=== PATIENT | female | born 1960 | race Hispanic/Latino ===

== ENCOUNTER → 2021-12-31 10:17 | Outpatient (CLI) | payer OTHER, SELFPAY ==
[2021-12-31 13:29] LABS: COVID19 -Nasal RAPID Negative (Negative)
== END ==
PROVIDERS: Family Provider Family Medicine; PCP Family Medicine; Visit Provider Family Medicine Sleep Medicine
DX: Z20.822 Contact with and (suspected) exposure to COVID-19 (principal)
CPT/HCPCS: 87635; C9803

== ENCOUNTER 2022-01-03 11:10 | Observation (INO) | payer OTHER, SELFPAY ==
[2021-12-27 08:08] VITALS: BMI 43.0
[2022-01-02] VITALS (12 sets, daily range): BP systolic 120–177; BP diastolic 52–87; PULSE 72–97; RESP 12–18; TEMP 35.8–36.7; O2SAT 94–97; BMI 43.0
[2022-01-02] MEDS: LACTATED RINGERS 1,000 ML 42 ML IV ×2 (07:12→09:40)
--- NOTE | 2022-01-02 07:40 | PM.PREOP ---
Pre-operative Note COVID-19 COVID-19 status: Negative Result date/Date tested (Pos, Neg/Pending): 12/31/21 Interval Note History & Physical reviewed/Exam performed by Physician: Yes Changes to H&P: No
--- NOTE | 2022-01-02 07:45 | DI.RAD.S_ITS ---
PROCEDURE: XR KNEE RT 1TO2V INDICATIONS: post op total knee TECHNIQUE: 2 view(s) of the knee acquired. COMPARISON: None. FINDINGS: Bones: Patient is status post knee joint arthroplasty. Hardware components are in expected positions. Visualized bony structures are intact. Soft tissues: Overlying postoperative changes are noted. IMPRESSION: Expected postop change for right knee arthroplasty. Dictated by: Karen Hayes MD, PhD on 01/02/2022 at 11:22 Approved by: Karen Hayes MD, PhD on 01/02/2022 at 11:27
[2022-01-02] MEDS: ACETAMINOPHEN 325 MG TABLET 975 MG PO (07:47)
[2022-01-02] MEDS: PREGABALIN 75 MG CAPSULE PO (07:48)
[2022-01-02] MEDS: CELECOXIB 200 MG CAPSULE PO (07:48)
[2022-01-02] MEDS: CEFAZOLIN 2 GM/20 ML SYRINGE IV (08:30)
[2022-01-02] MEDS: TRANEXAMIC ACID 1,000 MG VIAL 2000 MG INJ ×2 (08:40→09:47)
--- NOTE | 2022-01-02 08:55 | SUR.OPER ---
Supine on padded OR bed. Pillow under head, arms secured on padded armboards <90 degree abduction. Safety belt across torso. Non-operative leg secured with tape over blanket over lower leg. Operative leg secured in De[employer]o positioner. Foam padded brace at thigh of operative leg.
[2022-01-02] MEDS: BUPIVACAINE LIPOSOME 266 MG/20 ML VIAL INJ (09:11)
[2022-01-02] MEDS: MORPHINE 4 MG/ML INJ INJ (09:11)
[2022-01-02] MEDS: BUPIVACAINE 0.5% (PF) 30 ML, EPINEPHrine 0.15 MG INJ (09:12)
--- NOTE | 2022-01-02 10:20 | PM.OP.1 ---
Operative Date/Time/Diagnoses Date of procedure: 01/02/22 Time of procedure: 10:00 Pre-op diagnosis: Right knee osteoarthritis Post-op diagnosis: same Procedure & Clinicians Procedure: Right total knee replacement Same procedure as scheduled: Yes Indications: The patient has had progressively worsening right knee pain with radiographic changes consistent with arthritis. Non-operative management has failed and the patient has requested total knee replacement. The risks, benefits and alternatives to surgery were discussed with the patient prior to proceeding. Risks discussed included, but were not limited to, failure to relieve pain, stiffness, infection, nerve damage, deep venous thrombosis, pulmonary embolism, stroke, coma, heart attack, permanent paralysis and , as well as the potential need for eventual revision of the prosthetic. Surgeon: Kahlil Alonso Composition Stone Applicator: Aaron Marsh Click Yes if Unassisted: No Anesthesia Type: General, Spinal and Local Operative Notes Findings: Severe medial and moderate patellofemoral osteoarthritis Closure Type: primary Specimen(s): none sent Prosthetic devices, grafts, tissues, transplants, or devices: Implants used in this procedure were manufactured by the [employer] and [employer] and included the BCS II Journey total knee replacement with a size 5 right Oxinium femoral component, a size 4 right non porous tibial base plate, a 9 mm tibial insert and a 32 mm oval Becky II patella. Applied: implant(s) Estimated Blood Loss (mL): 50 Blood products transfused: none Tourniquet time (min): 52 Procedure in detail: The patient was seen in the pre-operative area, where the patient identified the right knee as the operative site and this was marked with my initials. The patient received pre-operative antibiotics, and was taken to the operating room and placed on the operative table in the supine position. After satisfactory anesthesia, a time study technologist out was performed. The right leg was encircled with a tourniquet about the proximal thigh, and the leg was prepared from the toes to the tourniquet with ChloroPrep in the usual fashion and draped through sterile drapes. The leg was elevated and exsanguinated with Eschmark bandage and the tourniquet inflated to 250 mmHg pressure. The knee was approached through an approximately 18 cm incision centered over the patella and carried into the knee through a medial parapatellar arthrotomy. The anterior osteophytes and soft tissues were removed. The rotational landmarks of Caswell's line and the transepicondylar axis were marked on the femur with electrocautery, and intramedullary guide holes for the femur and tibia were created. The distal femoral cut was made in 6 degrees of valgus using the intramedullary guide at the primary cut setting. The proximal tibial cut was then made using the intramedullary guide, taking 9 mm of bone off the less involved side. The extension gap was checked and the rotation of the femoral component confirmed with the gap balancing system. The anterior, posterior and chamfer cuts were then made. The posterior osteophytes and soft tissues were then removed. The posterior capsule was injected with part of a mixture of 60 ml 0.25% Marcaine mixed with 20 ml Exparel and 4 mg of morphine for post-operative pain control. The remainder of this mixture was injected into the capsule and subcutaneous tissues during cement curing. The tibia was prepared with the rotation set by an extra medullary guide. Trial tibial and femoral components were then placed and the intercondylar notch cut through the femoral trial. Range of motion was 0-135 degrees with good stability throughout the range. The patella was then cut to accommodate the patellar prosthetic. There was no need for a lateral release. The trials were then removed, and the femoral hole plugged with a bone plug. The bone was prepared with pulsatile lavage, and dried with a sponge. Cement was applied and the final prosthetics placed. Excess cement was removed during and after cement curing. After confirming there was no extruded cement posteriorly, the final tibial insert was placed. The knee was copiously irrigated and the tourniquet deflated. Hemostasis was obtained. The capsule was closed with interrupted # 2 polyester suture. The subcutaneous layer was closed with 3-0 Vicryl, and the skin with a running 3-0 V-Lock suture and Dermabond. An Aquacel Ag dressing was applied and the patient was taken to recovery having tolerated the procedure well. Complications: none Post-operative Condition: stable Disposition: PACU Plan for aftercare: The patient will be maintained on a standard total knee replacement protocol with weight bearing as tolerated. The patient will receive aspirin and sequential compression devices for DVT prophylaxis. The patient will be discharged home when safe for the home environment.
[2022-01-02] MEDS: HYDROMORPHONE 2 MG INJ IV ×4 (10:33→10:56)
[2022-01-02] MEDS: fentaNYL 100 MCG/2 ML INJ IV ×2 (10:37→10:49)
[2022-01-02] MEDS: OXYCODONE/ACETAMINOPHEN 5/325 TABLET 1 TAB PO (11:12)
[2022-01-02] MEDS: GABAPENTIN 300 MG CAPSULE PO (13:01)
[2022-01-02] MEDS: hydroCHLOROthiazide 25 MG TABLET PO (13:01)
[2022-01-02] MEDS: METFORMIN HCL 500 MG TABLET 1000 MG PO (13:01)
[2022-01-02] MEDS: LACTATED RINGERS 1,000 ML 100 ML IV ×2 (13:02→23:34)
[2022-01-02] MEDS: INSULIN LISPRO 100 UNIT/ML 3ML VIAL SUBCUT ×2 (13:02→17:37)
[2022-01-02] MEDS: ONDANSETRON 4 MG/2 ML INJ IV ×2 (13:33→18:14)
[2022-01-02] MEDS: ACETAMINOPHEN 325 MG TABLET 650 MG PO ×2 (14:15→20:23)
[2022-01-02] MEDS: OXYCODONE IR 5 MG TABLET PO ×2 (15:24→20:23)
[2022-01-02] MEDS: hydrOXYzine pamoate 25 MG CAPSULE PO (15:25)
--- NOTE | 2022-01-02 16:20 | PT.IIE ---
Current Diagnoses Unilateral primary osteoarthritis, right knee (01/02/22) Surgery Performed Operation Date: 01/02/22 07:45 Actual Procedures p Total Knee Arthroplasty(Right) - Kahlil Alonso MD Medical History (Last Updated 01/02/22 @ 07:11 by Silvana Russell RN) Anxiety Asthma Chronic low back pain COVID-19 virus infection (06/2020) Depression Diabetes (2020) Fibromyalgia GERD (gastroesophageal reflux disease) Graves' disease Headache, migraine HLD (hyperlipidemia) HTN (hypertension) Hypothyroidism Insomnia NAOMI (obstructive sleep apnea) Pain management contract agreement RLS (restless legs syndrome) Sinusitis Physical Therapy Inpatient Evaluation/Re-Eval M1 PT/OT-IP Prior Functional Status Start: 01/02/22 17:11 Freq: NEEDED Status: Active Protocol: Document 01/02/22 16:20 AB (Rec: 01/02/22 17:24 AB [id number]) Medical Review Prior Functional Status Medical History Reviewed Yes Communication able to make needs known Mobility and Gait pt stated that she is iindependent with all mobilities and ambulation without AD indoors but uses a SPC for outdoor/long distance mobility Social History Household Members none Living Arrangements House Number of Floors (Floors) One Floor Number of Stairs To Enter/Railing? no steps to enter Home Environment High Toilet,Tub/Shower Home Equipment Front Wheel Walker,Straight Cane,Tub Transfer Bench,Hand Held Shower,Grab Bars In Shower Additional Social History Comment pt's son and [id number] will stay with pt for the first week and then her daughter will stay with her to assist pt has access to a hospital bed with rails M2 PT-IP Current Condition Start: 01/02/22 17:11 Freq: NEEDED Status: Active Protocol: Document 01/02/22 16:20 AB (Rec: 01/02/22 17:24 AB [id number]) Physical Therapy Current Condition Current Condition Evaluation Date 01/02/22 Treatment Diagnosis s/p R TKA; difficulty in walking Onset Date 01/02/22 M3 PT-IP Subjective Start: 01/02/22 17:11 Freq: NEEDED Status: Active Protocol: Document 01/02/22 16:20 AB (Rec: 01/02/22 17:24 AB [email or web address]) Subjective Physical Therapy Visit Type Type Initial Evaluation Visit Start Time 16:20 Visit Stop Time 17:02 Total Visit Minutes 42 Number of REFLESHER Visits 0 Physical Therapy Visit Comments Patient Comments agreeable to do PT Therapy Pain Assessment Pain When Pain Assessed At Rest Pain Present Pain Present Pain Reported Location Right Knee Intensity 7 Scale Used Numeric (0 - 10) Pain Behaviors Crying,Facial Grimacing, Guarding,Wincing Pain Management Techniques Apply Cold,Distraction, Modification of Treatment,Re- positioning,Timing of Activity with Medications M4 PT-IP Mobility and Gait Start: 01/02/22 17:11 Freq: NEEDED Status: Active Protocol: Document 01/02/22 16:20 AB (Rec: 01/02/22 17:24 AB [email or web address]) PT-Bed Mobility Assessment Supine to Sit Supine to Sit Maximum Assistance Sit to Supine Sit to Supine Moderate Assistance PT-Transfer Assessment Sit to and From Stand Sit to and from Stand Maximum Assistance,1 Person Assistance,Use of Upper Extremities Equipment Transfer Assistive Device Gait Belt,Front Wheeled Walker Orthotic/Prosthetic Devices or Brace: No Transfers Transfer Destination Bedside Commode Transfer Technique Stand Step Pivot Transfer Ability Level of Assist Maximum Assistance,1 Person Assistance,Use of Upper Extremities Comments Mobility Comments BP in supine: 133/76 completed supine to sit max A and max cues. max A for scooting to EOB. c/o increase pain. nurse aware. completed sit to stand max A and step transfer using FWW to bedside commode max A and max cues with cues and assist needed to stabilize R knee. ( +) buckling and requires assist on R knee. pt c/o nausea after transferring to the bedside commode with (+) emesis. nurse is also aware. pt completed sit to stand from bedside commode max A and step transfer to bed using FWW max a and cues. completed sit to supine mod A with LE and max cues. positioned pt in bed. call light and table placed within reach. c/o increase pain and pt stated that she has fibromyalgia and has pain more than normal . Gait Assessment Comments Gait Comments able to take a few steps during transfers but unable to ambulate due to increase R knee pain. PT-Balance Assessment Sitting Balance and Reactions Static Sitting Balance Ability Good Dynamic Sitting Balance Ability Good Standing Balance and Reactions Static Standing Balance Ability Fair Dynamic Standing Balance Ability Poor Device Used FWW M5 PT-IP Objective Assessments Start: 01/02/22 17:11 Freq: NEEDED Status: Active Protocol: Document 01/02/22 16:20 AB (Rec: 01/02/22 17:24 AB [email or web address]) Orientation Orientation/Cognition Level of Alertness Alert Orientation Name,Age,Birthday,Month,Date, Year,Day of Week,Place, Situation Language Function Ability No Deficits Noted Safety Awareness Decreased Safety Awareness Memory Description No Deficits Noted Gross Range of Motion Lower Extremity ROM Impairments R knee extension: ~ 30 deg less to 0 R knee flexion: ~ 50 deg Strength Lower Extremity Strength Assessment Right Impaired Hip 3+/5 Knee 3/5 Coordination Assessment Gross Coordination Gross Coordination WNL Sensation Assessment Sensation Gross Sensation WNL Muscle Tone Muscle Tone WNL Yes M6 PT-IP Treatment Start: 01/02/22 17:11 Freq: NEEDED Status: Active Protocol: Document 01/02/22 16:20 AB (Rec: 01/02/22 17:24 AB [email or web address]) Physical Therapy Treatment Education Education Provided Precautions,Weight Bearing Status,Post-Op Packet,Safety M7 PT-IP Assessment and Plan Start: 01/02/22 17:11 Freq: NEEDED Status: Active Protocol: Document 01/02/22 16:20 AB (Rec: 01/02/22 17:24 AB [email or web address]) PT Summary Assessment and Plan Potential Rehabilitation Potential Good Status of Condition at Evaluation Evolving Summary Impairments Pain,ROM,Strength,Balance, Coordination,Sensation,Tone, Cognition,Bed Mobility, Transfers,Gait,Activity Tolerance Assessment Summary pt s/p R TKA and just had surgery this morning. c/o increase pain and nausea during mobility and unable to ambulate during eval but able to take a few steps during transfers but with R knee buckling requiring cues and assist to stabilize. pt stated that her daughter has to work tomorrow until 130 pm. will conduct caregiver training when appropriate. will continue to assess progress. Goals Bed Mobility Goal Independent Transfer Goal Independent,Front Wheeled Walker Gait Goal Independent,Front Wheel Walker Gait Distance 200 Days to Meet Goals 10 Frequency of Treatment Frequency Of Treatment Twice a Day Treatment Plan Physical Therapy Treatment Plan Bed Mobility Training,Transfer Training,Gait Training, Therapeutic Exercise,Balance Retraining,Post Op Education, Discharge Planning,Hot or Cold Pack,Neuromuscular Re-ed, Coordination Retraining,Manual Therapy Weight Bearing Status Weight Bearing Status Weight Bear as Tolerated Allowed Weight Bearing Amount (enter % RLE WBAT or #) (%) Recommendations To Nursing Amount of Assist Needed 1 Person Assist Discharge Recommendations PT Discharge Recommendations Home with 31/03 Assist Available,Home Health,Home vs SNF Transportation Needs at Discharge Private Vehicle,Wheelchair/ Cabulance
[2022-01-02] MEDS: HYDROMORPHONE 0.5 MG INJ 0.2 MG IV (16:56)
[2022-01-02] MEDS: DOCUSATE 100 MG CAPSULE PO (20:22)
[2022-01-02] MEDS: PANTOPRAZOLE DR 20 MG TABLET PO (20:22)
[2022-01-02] MEDS: ASPIRIN EC 81 MG TABLET PO (20:23)
[2022-01-03] VITALS (7 sets, daily range): BP systolic 111–134; BP diastolic 51–68; PULSE 75–94; RESP 16–19; TEMP 36.4–37.1; O2SAT 94–96
[2022-01-03] MEDS: OXYCODONE IR 5 MG TABLET PO ×2 (04:42→20:37)
[2022-01-03] MEDS: LEVOTHYROXINE 137 MCG TABLET PO (06:33)
--- NOTE | 2022-01-03 07:45 | P.DS_ITS ---
History of Present Illness History of Present Illness Date Patient Seen: 01/03/22 Time Patient Seen: 07:45 Chief complaint: RT TKA *OPB* Narrative: The history and physical are contained in the chart previously completed note. Please refer to that note for this information. Discharge Providers Provider Date of admission: January 02, 2022 Discharge Date: 01/03/22 Primary care physician: Teresa Hubbard MD Consults: 01/02/22 11:41 Consult to Discharge Planning Routine Comment: Consult to Physical Therapy Evaluate & Treat Comment: Physician Instructions: postop TKA protocol Consult to Respiratory Therapy Evaluate & Treat Comment: Physician Instructions: Evaluate and treat Discharge provider: Kahlil Alonso MD Summary Hospital Course Discharge Diagnosis: 1. Right knee osteoarthritis 2. Morbid obesity limiting mobilization. Hospital Course: The patient was admitted to the hospital and taken directly to the operating room on January 02, 2022 where she underwent a right total knee replacement without difficulty. On postoperative day 1 she was reasonably comfortable but had not mobilized overnight. At the time of this dictation the plan is to mobilize her with physical therapy and discharge her later in the day. Status at Discharge Cognitive/behavioral status at discharge: at baseline, oriented Functional status at discharge: uses cane/walker Overall status at discharge: patient is progressing back to baseline Time Spent with Patient Time spent: Less than 30 minutes Exam Vital Signs (past 8 hours): - 01/03/22 01:00 01/03/22 05:07 Temperature 97.8 F 97.7 F Pulse Rate 80 89 Respiratory Rate 16 16 Blood Pressure 125/62 134/68 Pulse Oximetry 96 Oxygen Delivery Method Room Air Oxygen Flow Rate 0 Narrative Exam Narrative: Right knee wound is dressed with no drainage on the bandage. Calf is soft. Li ght touch and motion are intact in the right lower extremity. FOR[facility] Medical History (Updated 01/02/22 @ 07:11 by Silvana Russell RN) Anxiety Asthma Chronic low back pain COVID-19 virus infection (06/2020) Depression Diabetes (2020) Fibromyalgia GERD (gastroesophageal reflux disease) Graves' disease Headache, migraine HLD (hyperlipidemia) HTN (hypertension) Hypothyroidism Insomnia NAOMI (obstructive sleep apnea) Pain management contract agreement RLS (restless legs syndrome) Sinusitis Surgical History (Updated 12/27/21 @ 09:23 by Hannah Villasenor RN) History of back surgery History of bilateral carpal tunnel release History of History of hysterectomy History of lumbar spinal fusion (09/04/16) History of orthopedic surgery Hx of arthroscopy of right knee Hx of cholecystectomy Hx of colonoscopy (2018) Hx of foot surgery Hx of sinus surgery Status post trigger finger release Social History household members: none Smoking Status: Never smoker alcohol intake: former Discharge Assessment & Plan Assessment and Plan Assessment: Stable postoperative day 1 status post right total knee replacement. She did not mobilize overnight but will be seeing Physical therapy today. Plan of Treatment: Discharge today after physical therapy. Follow-up in my office in 10-14 days. Discharge prescriptions have been sent to her pharmacy for oxycodone and Vistaril. In addition she has been given recommendations for the use of Tylenol and Advil for additional pain relief in the use of low-dose aspirin for DVT prophylaxis. Discharge Plan Discharge Plan Patient Disposition: Home Discharge orders & Medications Discharge Orders: Discharge (Order); Ordered 01/03/22 Ordered By: Kahlil Alonso Prescriptions: New acetaminophen 325 mg Tablet 650 mg PO TID 30 Days Qty: 180 0RF aspirin 81 mg Tablet,Delayed Release (Dr/Ec) 81 mg PO BID 42 Days Qty: 84 0RF hydroxyzine pamoate 25 mg Capsule 25 mg PO Q6HR PRN (Reason: Nausea) Qty: 30 0RF oxycodone 5 mg Tablet 5 mg PO Q4H PRN (Reason: Pain, Moderate (4-6)) Qty: 40 0RF Continued albuterol sulfate [Ventolin HFA] 90 MCG/PUFF HFA aerosol inhaler 1 - 2 puff INH Q4HP PRN (Reason: Shortness Of Breath) Qty: 0 0RF cyclobenzaprine 5 MG tablet 5 mg PO TIDP PRN (Reason: Muscle spasms) Qty: 0 0RF fluticasone propionate [Flonase Allergy Relief] 9.9 ML spray,suspension 2 spray Intranasal DAILY Qty: 0 0RF gabapentin [Neurontin] 600 MG tablet 300 mg PO QDAY Qty: 0 0RF hydrochlorothiazide 25 MG tablet 25 mg PO QDAY Qty: 0 0RF sumatriptan succinate [Imitrex] 100 MG tablet 100 mg PO PRN PRN (Reason: Headache) Qty: 0 0RF Label Comments: hasn't used in months levothyroxine [Levoxyl] 200 MCG tablet 137 mcg PO QDAY Qty: 0 0RF lorazepam 1 MG tablet 0.5 - 1 tab PO BIDP PRN (Reason: Anxiety) Qty: 0 0RF omeprazole 20 MG capsule,delayed release(DR/EC) 20 mg PO BID Qty: 0 0RF Qvar 80 MCG/PUFF aerosol 2 puff INH BIDP PRN (Reason: Shortness Of Breath) Qty: 0 0RF Label Comments: hasn't used in months losartan 50 mg Tablet 50 mg PO DAILY 0RF bupropion HCl 100 mg Tablet 100 mg PO DAILY 0RF atorvastatin 40 mg Tablet 40 mg PO DAILY 0RF metformin 500 mg Tablet 1,000 mg PO QAM 0RF Discontinued hydrocodone-acetaminophen 10 MG/325 MG tablet 1 - 2 tab PO Q6HP PRN (Reason: Pain) Qty: 0 0RF ibuprofen 600 MG tablet 600 mg PO DAILY Qty: 0 0RF Follow up/Referrals: Kahlil Alonso MD [Physician] - 2 Weeks Teresa Hubbard MD [Primary Care Provider] - Diet/Activity/Treatments Diet: Diet as Tolerated and Carb-consistent/Diabetic Activity: You may bear weight as tolerated on your right leg. Cold/Heat Therapy: You may apply ice for 15 minutes of every hour as needed to the right knee for pain control. Skin/Wound/Dressing Care Report to your healthcare provider any signs of infection, such as:: chills, fever, night sweats, increased pain, unusual drainage and unusual redness Dressing: You may remove the Shaquille wrap 3 days after surgery and shower normally with the deeper dressing in place. Leave the deeper dressing in place until your postoperative follow-up. If the central strip of the deeper dressing becomes saturated with either water or blood, please call the office to have it evaluated. Visit Report/Discharge Packet Instructions: DI for Knee Replacement Stand Alone Forms: Surgery Discharge Discharge Data Primary Care Provider: Teresa Hubbard Attending Provider: Kahlil Alonso Quality VTE Deep Vein Thrombosis/Pulmonary Embolism Present on Admission: No
[2022-01-03] MEDS: OXYCODONE IR 10 MG TABLET PO ×4 (07:52→17:00)
[2022-01-03] MEDS: hydrOXYzine pamoate 25 MG CAPSULE PO ×2 (07:52→17:00)
[2022-01-03 08:20] LABS: Hematocrit 34.6 % (36-46); Hemoglobin 11.6 g/dL (12.0-16.0)
[2022-01-03] MEDS: hydroCHLOROthiazide 25 MG TABLET PO (09:19)
[2022-01-03] MEDS: LOSARTAN 50 MG TABLET PO (09:20)
[2022-01-03] MEDS: ASPIRIN EC 81 MG TABLET PO ×2 (09:21→20:36)
[2022-01-03] MEDS: GABAPENTIN 300 MG CAPSULE PO (09:21)
[2022-01-03] MEDS: DOCUSATE 100 MG CAPSULE PO ×2 (09:21→20:36)
[2022-01-03] MEDS: METFORMIN HCL 500 MG TABLET 1000 MG PO (09:21)
[2022-01-03] MEDS: ATORVASTATIN 20 MG TABLET 40 MG PO (09:22)
[2022-01-03] MEDS: PANTOPRAZOLE DR 20 MG TABLET PO ×2 (09:22→20:36)
[2022-01-03] MEDS: ACETAMINOPHEN 325 MG TABLET 650 MG PO ×3 (09:22→20:37)
[2022-01-03] MEDS: polyethylene glycoL 3350 17 GM POWD.PACK PO (09:24)
--- NOTE | 2022-01-03 10:14 | PT.IPTN ---
Current Diagnoses Unilateral primary osteoarthritis, right knee (01/03/22) Surgery Performed Operation Date: 01/02/22 07:45 Actual Procedures p Total Knee Arthroplasty(Right) - Kahlil Alonso MD Physical Therapy Treatment Note M2 PT-IP Current Condition Start: 01/02/22 17:11 Freq: NEEDED Status: Active Protocol: Document 01/02/22 16:20 AB (Rec: 01/02/22 17:24 AB [id number]) Physical Therapy Current Condition Current Condition Evaluation Date 01/02/22 Treatment Diagnosis s/p R TKA; difficulty in walking Onset Date 01/02/22 M3 PT-IP Subjective Start: 01/02/22 17:11 Freq: NEEDED Status: Active Protocol: Document 01/03/22 09:49 KS (Rec: 01/03/22 12:56 KS [id number]) Subjective Physical Therapy Visit Type Type Treatment Note Visit Start Time 09:49 Visit Stop Time 10:14 Total Visit Minutes 25 Number of WINTER SPORTS MANAGER Visits 1 Physical Therapy Visit Comments Patient Comments agreeable to do PT Therapy Pain Assessment Pain When Pain Assessed At Rest Pain Present Pain Present Pain Reported Location Right Knee Intensity 7 Scale Used Numeric (0 - 10) Pain Behaviors Crying,Facial Grimacing, Guarding,Wincing Pain Management Techniques Apply Cold,Distraction, Modification of Treatment,Re- positioning,Timing of Activity with Medications M4 PT-IP Mobility and Gait Start: 01/02/22 17:11 Freq: NEEDED Status: Active Protocol: Document 01/03/22 09:49 KS (Rec: 01/03/22 12:56 KS [id number]) PT-Bed Mobility Assessment Sit to Supine Sit to Supine Contact Guard Assistance,1 Person Assistance,Head of Bed Elevated Scooting Scooting to Edge of Bed Contact Guard Assistance PT-Transfer Assessment Sit to and From Stand Sit to and from Stand Minimal Assistance,1 Person Assistance,Use of Upper Extremities Equipment Transfer Assistive Device Gait Belt,Front Wheeled Walker Orthotic/Prosthetic Devices or Brace: No Transfers Transfer Destination Bed,Toilet Transfer Technique Pt ambulated w/ FWW Transfer Ability Level of Assist Contact Guard Assistance, Minimal Assistance,1 Person Assistance,Use of Upper Extremities Comments Mobility Comments Pt in chair upon arrival and agreeable to ambulate. Pt cries out in pain when lowering foot rest of chair. CGA for scooting and Min A for sit<>Stand w/ FWW. Pt ambulated ~30 ft in room and the requested to use toilet. After voiding she ambulated additional 15 ft back to bed. CGA for sit<>sup w/ use of gaitbelt to self assist RL into bed. Pt left in bed w/ all needs in reach. Gait Assessment Gait Gait Assistance Required: Contact Guard Assist,1 Person Assist Distance (Feet) 45 Able to Maintain Weight Bearing Status Yes During Gait Assistive Devices Assistive Device Gait Belt,Front Wheeled Walker Gait Deviations General Gait Pattern Antalgic,Decreased Stride Length,Decreased Feet Clearance,Flexed Trunk Factors Limiting Gait Function Factors Limiting Gait Function Decreased Activity Tolerance, Decreased Strength,Pain,Poor Safety Awareness Comments Gait Comments Pt able to increase ambulatory distance today however reports 7/10 pain, wincing and crying out during ambulation, sometimes leaning on elbows on FWW for support. No LOB during, but pt not safe to ambulate on her own at this time due to poor use of FWW. Stair Climbing Assessment Comments Stair Climbing Comments no stairs at home. ramp to enter. PT-Balance Assessment Sitting Balance and Reactions Static Sitting Balance Ability Good Dynamic Sitting Balance Ability Good Standing Balance and Reactions Static Standing Balance Ability Fair Dynamic Standing Balance Ability Fair Device Used FWW M5 PT-IP Objective Assessments Start: 01/02/22 17:11 Freq: NEEDED Status: Active Protocol: Document 01/02/22 16:20 AB (Rec: 01/02/22 17:24 AB [id number]) Orientation Orientation/Cognition Level of Alertness Alert Orientation Name,Age,Birthday,Month,Date, Year,Day of Week,Place, Situation Language Function Ability No Deficits Noted Safety Awareness Decreased Safety Awareness Memory Description No Deficits Noted Gross Range of Motion Lower Extremity ROM Impairments R knee extension: ~ 30 deg less to 0 R knee flexion: ~ 50 deg Strength Lower Extremity Strength Assessment Right Impaired Hip 3+/5 Knee 3/5 Coordination Assessment Gross Coordination Gross Coordination WNL Sensation Assessment Sensation Gross Sensation WNL Muscle Tone Muscle Tone WNL Yes M6 PT-IP Treatment Start: 01/02/22 17:11 Freq: NEEDED Status: Active Protocol: Document 01/03/22 09:49 KS (Rec: 01/03/22 12:56 KS [id number]) Physical Therapy Treatment Education Education Provided Precautions,Weight Bearing Status,Post-Op Packet,Safety M7 PT-IP Assessment and Plan Start: 01/02/22 17:11 Freq: NEEDED Status: Active Protocol: Document 01/03/22 09:49 KS (Rec: 01/03/22 12:56 KS [id number]) PT Summary Assessment and Plan Potential Rehabilitation Potential Good Status of Condition at Evaluation Evolving Summary Impairments Pain,ROM,Strength,Balance, Coordination,Sensation,Tone, Cognition,Bed Mobility, Transfers,Gait,Activity Tolerance Assessment Summary Pt required less assist today and was able to increase gait distance, however remains limited by high reported pain and low tolerance for activity . Min A for sit<>stand and CGA for short distance ambulation , however pt w/ poor use of FWW sometimes leaning on elbows due to pain. Pt states nobody will be able to asisst her tonight, but that she has assistance tomorrow afternoon and her daughter can stay with her tomorrow night and through the weekend. Pt offers that she has steep driveway leading into house and due to pain and low activity tolerance, she would likely not be able to complete this today. She will benefit from continued acute rehab to assess progress. Pts daughter not available until 1:30 tomorrow and pt will need caregiver training prior to d/ c. Goals Bed Mobility Goal Independent Transfer Goal Independent,Front Wheeled Walker Gait Goal Independent,Front Wheel Walker Gait Distance 200 Days to Meet Goals 10 Frequency of Treatment Frequency Of Treatment Twice a Day Treatment Plan Physical Therapy Treatment Plan Bed Mobility Training,Transfer Training,Gait Training, Therapeutic Exercise,Balance Retraining,Post Op Education, Discharge Planning,Hot or Cold Pack,Neuromuscular Re-ed, Coordination Retraining,Manual Therapy Weight Bearing Status Weight Bearing Status Weight Bear as Tolerated Allowed Weight Bearing Amount (enter % RLE WBAT or #) (%) Recommendations To Nursing Amount of Assist Needed 1 Person Assist Discharge Recommendations PT Discharge Recommendations Home with 31/03 Assist Available,Home Health,Home vs SNF Transportation Needs at Discharge Private Vehicle,Wheelchair/ Cabulance
[2022-01-03] MEDS: INSULIN LISPRO 100 UNIT/ML 3ML VIAL SUBCUT ×2 (12:14→17:01)
--- NOTE | 2022-01-03 13:47 | CM.IDA ---
Initial DCP Assessment Note Pt is a 61 yo female, resident of [place], now POD#1 from Rt knee surgery by Dr Alonso PCP: Teresa Hubbard Payer: [employer] Reviewed chart, pt discussed in multidisciplinary rounds this morning. Therapy has not quite cleared pt for return home w/family to assist. Patient has planned for home, however, post operative pain and N/V have been limiting factors during therapy sessions. DC order from Ortho has already been initiated this morning; anticipate DC may be delayed until tomorrow. This BARREL MARKER will plan to review HH services w/patient and family; need referral if patient requests GARCIA Strickland Discharge Planning/Care Management CM Discharge Assessment Start: 01/03/22 13:38 Freq: Status: Active Protocol: Document 01/03/22 13:39 JOSE (Rec: 01/03/22 13:47 JOSE [id number]) Discharge Planning Assessment Assigned Jigger Artisan GARCIA Hogan DPOA/Assigned Designee Name Christiano Ken dtr Contact Information [phone] Advance Directives? No History Provided By Patient,Medical Record Prior Living Arrangements House Household Members none Type of transporation used prior to Drives own vehicle admit Independent with ADL's Yes: Decreased activity tolerance d/t pain Is patient alert and oriented? Yes Needs Assistance With Home Chores / Shopping Patient/Family Preference Home with Home Health Barriers to Discharge Yes Comment Today, patient complaining of increased pain. POD0 patient had a lot of N/V, so slow to progress w/therapies. It is expected patient will be able to DC home w/family, however, dtr is not available until tomorrow afternoon, and will need to complete cg training in order to properly assist patient once home Discharge Plan Home with Home Health Transportation Arrangement Family Additional Comment Need to discuss home health services w/patient; possible referral
--- NOTE | 2022-01-03 14:28 | PT.IPTN ---
Current Diagnoses Unilateral primary osteoarthritis, right knee (01/03/22) Surgery Performed Operation Date: 01/02/22 07:45 Actual Procedures p Total Knee Arthroplasty(Right) - Kahlil Alonso MD Physical Therapy Treatment Note M2 PT-IP Current Condition Start: 01/02/22 17:11 Freq: NEEDED Status: Active Protocol: Document 01/02/22 16:20 AB (Rec: 01/02/22 17:24 AB [id number]) Physical Therapy Current Condition Current Condition Evaluation Date 01/02/22 Treatment Diagnosis s/p R TKA; difficulty in walking Onset Date 01/02/22 M3 PT-IP Subjective Start: 01/02/22 17:11 Freq: NEEDED Status: Active Protocol: Document 01/03/22 14:11 KS (Rec: 01/03/22 14:41 KS [id number]) Subjective Physical Therapy Visit Type Type Treatment Note Visit Start Time 14:11 Visit Stop Time 14:28 Total Visit Minutes 17 Number of MANUFACTURER REPRESENTATIVE Visits 2 Physical Therapy Visit Comments Patient Comments agreeable to do PT. Pt reports too much pain from just ambulating to bathroom. Only agreeable to leg exercises in bed. Therapy Pain Assessment Pain When Pain Assessed After Treatment Pain Present Pain Present Pain Reported Location Right Knee Intensity 8 Scale Used Numeric (0 - 10) Pain Behaviors Crying,Facial Grimacing, Guarding,Wincing Pain Management Techniques Apply Cold,Distraction, Modification of Treatment,Re- positioning,Timing of Activity with Medications M4 PT-IP Mobility and Gait Start: 01/02/22 17:11 Freq: NEEDED Status: Active Protocol: Document 01/03/22 14:11 KS (Rec: 01/03/22 14:41 KS [id number]) PT-Transfer Assessment Comments Mobility Comments Pt in bed upon arrival and reports high level of fatigue and increased pain recent ambulation to bathroom w/ nursing staff. Not agreeable to further ambulation this PM. Pt able to complete 1x10 bilateral ankle pumps, quad sets, glute sets, and heel slides. Unable to elevate RLE for SLR. Pt tearful following completion of exercise due to increased pain which she reports as 8/10. Educated pt on importance of mobilizing and weight bearing. Verbalized understanding. Caregiver training scheduled for 2 PM tomorrow as that is the earliest her daughter can arrive. Gait Assessment Comments Gait Comments Not agreeable to ambulation this PM. Stair Climbing Assessment Comments Stair Climbing Comments no stairs at home. ramp to enter. M5 PT-IP Objective Assessments Start: 01/02/22 17:11 Freq: NEEDED Status: Active Protocol: Document 01/02/22 16:20 AB (Rec: 01/02/22 17:24 AB [id number]) Orientation Orientation/Cognition Level of Alertness Alert Orientation Name,Age,Birthday,Month,Date, Year,Day of Week,Place, Situation Language Function Ability No Deficits Noted Safety Awareness Decreased Safety Awareness Memory Description No Deficits Noted Gross Range of Motion Lower Extremity ROM Impairments R knee extension: ~ 30 deg less to 0 R knee flexion: ~ 50 deg Strength Lower Extremity Strength Assessment Right Impaired Hip 3+/5 Knee 3/5 Coordination Assessment Gross Coordination Gross Coordination WNL Sensation Assessment Sensation Gross Sensation WNL Muscle Tone Muscle Tone WNL Yes M6 PT-IP Treatment Start: 01/02/22 17:11 Freq: NEEDED Status: Active Protocol: Document 01/03/22 14:11 KS (Rec: 01/03/22 14:41 KS [id number]) Physical Therapy Treatment Exercises Exercises Ankle Pumps,Gluteal Sets,Quad Sets,Heel Slides Education Education Provided Precautions,Weight Bearing Status,Post-Op Packet,Safety Other Treatments Other Treatment Performed Pt education on importance of weight bearing and mobilization. Informed pt she will need to increase ambulatory distance prior to d /c. Caregiver training scheduled for 2PM 01/04. M7 PT-IP Assessment and Plan Start: 01/02/22 17:11 Freq: NEEDED Status: Active Protocol: Document 01/03/22 14:11 KS (Rec: 01/03/22 14:41 KS [id number]) PT Summary Assessment and Plan Potential Rehabilitation Potential Good Status of Condition at Evaluation Evolving Summary Impairments Pain,ROM,Strength,Balance, Coordination,Sensation,Tone, Cognition,Bed Mobility, Transfers,Gait,Activity Tolerance Assessment Summary Pt did not agree to ambulate this PM due to fatigue from recent ambulation to bathroom w/ nursing staff. She did complete LE exercises to promote blood flow and strengthening, but had difficulty performing and became tearful due to increased pain. Pt verbalized understanding of importance of exercises, weight bearing, and ambulation. Caregiver training scheduled for 2 PM . D/c plan depending n progress, but anticipate pt will improve enough to return home w/ daughters support. Goals Bed Mobility Goal Independent Transfer Goal Independent,Front Wheeled Walker Gait Goal Independent,Front Wheel Walker Gait Distance 200 Days to Meet Goals 10 Frequency of Treatment Frequency Of Treatment Twice a Day Treatment Plan Physical Therapy Treatment Plan Bed Mobility Training,Transfer Training,Gait Training, Therapeutic Exercise,Balance Retraining,Post Op Education, Discharge Planning,Hot or Cold Pack,Neuromuscular Re-ed, Coordination Retraining,Manual Therapy Weight Bearing Status Weight Bearing Status Weight Bear as Tolerated Allowed Weight Bearing Amount (enter % RLE WBAT or #) (%) Recommendations To Nursing Amount of Assist Needed 1 Person Assist Discharge Recommendations PT Discharge Recommendations Home with 31/03 Assist Available,Home Health,Home vs SNF Transportation Needs at Discharge Private Vehicle,Wheelchair/ Cabulance
[2022-01-04] MEDS: hydrOXYzine pamoate 25 MG CAPSULE PO (00:51)
[2022-01-04] MEDS: OXYCODONE IR 5 MG TABLET PO ×3 (00:51→08:09)
[2022-01-04 04:20] VITALS: BP 127/53; PULSE 66; RESP 20; TEMP 36.2; O2SAT 98
[2022-01-04] MEDS: LEVOTHYROXINE 137 MCG TABLET PO (06:14)
[2022-01-04] MEDS: GABAPENTIN 300 MG CAPSULE PO (08:09)
[2022-01-04] MEDS: LOSARTAN 50 MG TABLET PO (08:09)
[2022-01-04] MEDS: ATORVASTATIN 20 MG TABLET 40 MG PO (08:10)
[2022-01-04] MEDS: DOCUSATE 100 MG CAPSULE PO (08:10)
[2022-01-04] MEDS: PANTOPRAZOLE DR 20 MG TABLET PO (08:10)
[2022-01-04] MEDS: ASPIRIN EC 81 MG TABLET PO (08:10)
[2022-01-04] MEDS: ACETAMINOPHEN 325 MG TABLET 650 MG PO ×2 (08:11→14:03)
[2022-01-04] MEDS: METFORMIN HCL 500 MG TABLET 1000 MG PO (08:11)
[2022-01-04] MEDS: polyethylene glycoL 3350 17 GM POWD.PACK PO (08:14)
[2022-01-04 08:33] VITALS: BP 136/53; PULSE 68; RESP 16; TEMP 36.4; O2SAT 94
--- NOTE | 2022-01-04 08:47 | PM.PNPO.1 ---
Subjective Subjective Date Patient Seen: 01/04/22 Time Patient Seen: 08:47 Interval history: Discharge was held yesterday due to continued slow progress with PT, possible need for HH. On visit this morning, pt states she is not moving much due to fear of pain, but she feels like she has enough support at home from son and daughter. She would like to go home today. Her blood presure has been somewhat low during her stay and I have advised her to check her BP at home and hold hydrochlorothiazide if it remains low. Exam Vital Signs (past 8 hours): - 01/04/22 04:20 01/04/22 08:33 Temperature 97.2 F L 97.6 F Pulse Rate 66 68 Respiratory Rate 20 16 Blood Pressure 127/53 L 136/53 L Pulse Oximetry 98 94 Oxygen Delivery Method Room Air Oxygen Flow Rate 0 Narrative Exam Narrative: 4/5 strength in hip flexors, quadriceps, hamstrings on right; 5/5 DF, PF, EHL. Sensation to light touch intact throughout BLE. Calves soft, compressible, nontender and without palpable cords or masses. Objective Labs Result Diagrams: 01/03/22 07:57 PFSH Medical History (Updated 01/04/22 @ 08:52 by Bebe Pagan PA-C) Anxiety Asthma Chronic low back pain COVID-19 virus infection (06/2020) Depression Diabetes (2020) Fibromyalgia GERD (gastroesophageal reflux disease) Graves' disease Headache, migraine HLD (hyperlipidemia) HTN (hypertension) Hypothyroidism Insomnia Morbid (severe) obesity due to excess calories NAOMI (obstructive sleep apnea) Pain management contract agreement RLS (restless legs syndrome) Sinusitis Surgical History (Updated 01/04/22 @ 08:51 by Bebe Pagan PA-C) History of back surgery History of bilateral carpal tunnel release History of History of hysterectomy History of lumbar spinal fusion (09/04/16) History of orthopedic surgery Hx of arthroscopy of right knee Hx of cholecystectomy Hx of colonoscopy (2017) Hx of foot surgery Hx of sinus surgery Status post trigger finger release Social History household members: none Smoking Status: Never smoker alcohol intake: former Assessment & Plan Post-op Assessment and plan (1) Status post total knee replacement: Assessment and Plan narrative: Discharge home, multimodal pain control, outpt PT. (2) Acute postoperative anemia due to expected blood loss: Assessment and Plan narrative: Hold HCTZ unless SBP > 140. (3) Morbid (severe) obesity due to excess calories: Postoperative Procedures: Procedures Operation Date: 01/02/22 07:45 Actual Procedure Side Surgeon p Total Knee Arthroplasty Right Kahlil Alonso MD Postoperative day: 2 Quality VTE Deep Vein Thrombosis/Pulmonary Embolism Present on Admission: No
[2022-01-04] MEDS: buPROPion 100 MG TABLET PO (09:03)
--- NOTE | 2022-01-04 09:37 | PT.IPTN ---
Current Diagnoses Acute posthemorrhagic anemia (01/03/22) Morbid (severe) obesity due to excess calories (01/03/22) Unilateral primary osteoarthritis, right knee (01/03/22) Presence of unspecified artificial knee joint (01/03/22) Surgery Performed Operation Date: 01/02/22 07:45 Actual Procedures p Total Knee Arthroplasty(Right) - Kahlil Alonso MD Physical Therapy Treatment Note M2 PT-IP Current Condition Start: 01/02/22 17:11 Freq: NEEDED Status: Active Protocol: Document 01/04/22 09:20 MA (Rec: 01/04/22 11:21 MA [id number]) Physical Therapy Current Condition Current Condition Evaluation Date 01/02/22 Treatment Diagnosis s/p R TKA; difficulty in walking Onset Date 01/02/22 M3 PT-IP Subjective Start: 01/02/22 17:11 Freq: NEEDED Status: Active Protocol: Document 01/04/22 09:20 MA (Rec: 01/04/22 11:21 MA [id number]) Subjective Physical Therapy Visit Type Type Treatment Note Visit Start Time 09:20 Visit Stop Time 09:37 Total Visit Minutes 17 Number of MULTI PURPOSE MACHINE OPERATOR Visits 3 Physical Therapy Visit Comments Patient Comments Pt agreeable to therapy and ambulation in room. She has already been up to shower and brush teeth with nursing Therapy Pain Assessment Pain When Pain Assessed At Rest Pain Present Pain Present Pain Reported Location Right Knee Intensity 3 Scale Used Numeric (0 - 10) Pain Behaviors Facial Grimacing,Guarding, Wincing Pain Management Techniques Apply Cold,Distraction, Modification of Treatment,Re- positioning,Timing of Activity with Medications M4 PT-IP Mobility and Gait Start: 01/02/22 17:11 Freq: NEEDED Status: Active Protocol: Document 01/04/22 09:20 MA (Rec: 01/04/22 11:21 MA [id number]) PT-Bed Mobility Assessment Supine to Sit Supine to Sit Standby Assistance Scooting Scooting to Edge of Bed Standby Assistance PT-Transfer Assessment Sit to and From Stand Sit to and from Stand Contact Guard Assistance,Use of Upper Extremities Equipment Transfer Assistive Device Gait Belt,Front Wheeled Walker Orthotic/Prosthetic Devices or Brace: No Transfers Transfer Destination Chair Transfer Technique ambulated with fww Transfer Ability Level of Assist Contact Guard Assistance,Use of Upper Extremities Comments Mobility Comments Pt in bed upon arrival. She is SBA for all bed mobility and uses gait belt to assist RLE to EOB. At EOB she performs ankle pumps befores tanding, CGA with gait belt and FWW. pt ambulates 1x around room ~15 ft before transferring into room chair CGA. Gait Assessment Gait Gait Assistance Required: Contact Guard Assist Distance (Feet) 15 Able to Maintain Weight Bearing Status Yes During Gait Assistive Devices Assistive Device Gait Belt,Front Wheeled Walker Gait Deviations General Gait Pattern Antalgic,Decreased Stride Length,Decreased Feet Clearance,Flexed Trunk Factors Limiting Gait Function Factors Limiting Gait Function Decreased Activity Tolerance, Decreased Strength,Pain Comments Gait Comments See mobility section above. Pt agreeable to ambulating further in PM with daughter during caregiver training. Stair Climbing Assessment Comments Stair Climbing Comments no stairs at home. ramp to enter. PT-Balance Assessment Sitting Balance and Reactions Static Sitting Balance Ability Good Dynamic Sitting Balance Ability Good Standing Balance and Reactions Static Standing Balance Ability Fair Dynamic Standing Balance Ability Fair Device Used FWW M5 PT-IP Objective Assessments Start: 01/02/22 17:11 Freq: NEEDED Status: Active Protocol: Document 01/02/22 16:20 AB (Rec: 01/02/22 17:24 AB [id number]) Orientation Orientation/Cognition Level of Alertness Alert Orientation Name,Age,Birthday,Month,Date, Year,Day of Week,Place, Situation Language Function Ability No Deficits Noted Safety Awareness Decreased Safety Awareness Memory Description No Deficits Noted Gross Range of Motion Lower Extremity ROM Impairments R knee extension: ~ 30 deg less to 0 R knee flexion: ~ 50 deg Strength Lower Extremity Strength Assessment Right Impaired Hip 3+/5 Knee 3/5 Coordination Assessment Gross Coordination Gross Coordination WNL Sensation Assessment Sensation Gross Sensation WNL Muscle Tone Muscle Tone WNL Yes M6 PT-IP Treatment Start: 01/02/22 17:11 Freq: NEEDED Status: Active Protocol: Document 01/04/22 09:20 MA (Rec: 01/04/22 11:21 MA [id number]) Physical Therapy Treatment Exercises Exercises Ankle Pumps Education Education Provided Precautions,Weight Bearing Status,Safety Other Treatments Other Treatment Performed Pt in bed performing exercises when PT arrives. Performed ankle pumps at EOB with passive knee flexion hanging LE over EOB. M7 PT-IP Assessment and Plan Start: 01/02/22 17:11 Freq: NEEDED Status: Active Protocol: Document 01/04/22 09:20 CELIA (Rec: 01/04/22 11:21 MA [id number]) PT Summary Assessment and Plan Potential Rehabilitation Potential Good Status of Condition at Evaluation Evolving Summary Impairments Pain,ROM,Strength,Balance, Coordination,Sensation,Tone, Cognition,Bed Mobility, Transfers,Gait,Activity Tolerance Assessment Summary Pt agreeable to ambulation in room only this session and further ambulation later when daughter arrives for caregiver training. She is found supine in bed performing LE exercises. Pt is SBA for all bed mobility using a gait belt to assist her RLE. She is CGA for gait using gait belt and FWW. Pt returns to room chair with all needs within reach. A plan set up for caregiver training during PM session. Goals Bed Mobility Goal Independent Transfer Goal Independent,Front Wheeled Walker Gait Goal Independent,Front Wheel Walker Gait Distance 200 Days to Meet Goals 10 Frequency of Treatment Frequency Of Treatment Twice a Day Treatment Plan Physical Therapy Treatment Plan Bed Mobility Training,Transfer Training,Gait Training, Therapeutic Exercise,Balance Retraining,Post Op Education, Discharge Planning,Hot or Cold Pack,Neuromuscular Re-ed, Coordination Retraining,Manual Therapy Weight Bearing Status Weight Bearing Status Weight Bear as Tolerated Allowed Weight Bearing Amount (enter % RLE WBAT or #) (%) Recommendations To Nursing Amount of Assist Needed 1 Person Assist Discharge Recommendations PT Discharge Recommendations Home with 31/03 Assist Available,Home Health Transportation Needs at Discharge Private Vehicle,Wheelchair/ Cabulance
[2022-01-04 10:06] VITALS: BP 120/47; PULSE 71; RESP 16; TEMP 35.8; O2SAT 95
--- NOTE | 2022-01-04 12:24 | CM.DPNOTE ---
DC Note According to Ortho ROBERTO Spence, patient is being discharged home w/family and friends today- patient declines HH at this time No needs identified from this DIRECTOR OF PRIMARY CARE JW
[2022-01-04] MEDS: OXYCODONE IR 10 MG TABLET PO (12:59)
--- NOTE | 2022-01-04 13:55 | PT.IPTN ---
Current Diagnoses Acute posthemorrhagic anemia (01/03/22) Morbid (severe) obesity due to excess calories (01/03/22) Unilateral primary osteoarthritis, right knee (01/03/22) Presence of unspecified artificial knee joint (01/03/22) Surgery Performed Operation Date: 01/02/22 07:45 Actual Procedures p Total Knee Arthroplasty(Right) - Kahlil Alonso MD Physical Therapy Treatment Note M2 PT-IP Current Condition Start: 01/02/22 17:11 Freq: NEEDED Status: Active Protocol: Document 01/04/22 09:20 MA (Rec: 01/04/22 11:21 MA [id number]) Physical Therapy Current Condition Current Condition Evaluation Date 01/02/22 Treatment Diagnosis s/p R TKA; difficulty in walking Onset Date 01/02/22 M3 PT-IP Subjective Start: 01/02/22 17:11 Freq: NEEDED Status: Active Protocol: Document 01/04/22 13:55 AB (Rec: 01/04/22 14:23 AB [id number]) Subjective Physical Therapy Visit Type Type Treatment Note Visit Start Time 13:55 Visit Stop Time 14:15 Total Visit Minutes 20 Number of LAPIDARY APPRENTICE Visits 0 Physical Therapy Visit Comments Patient Comments agreeable to do PT Therapy Pain Assessment Pain When Pain Assessed At Rest Pain Present Pain Present Pain Reported Location Right Knee Intensity 6 Scale Used Numeric (0 - 10) Pain Management Techniques Apply Cold,Distraction, Modification of Treatment,Re- positioning,Timing of Activity with Medications M4 PT-IP Mobility and Gait Start: 01/02/22 17:11 Freq: NEEDED Status: Active Protocol: Document 01/04/22 13:55 AB (Rec: 01/04/22 14:23 AB [id number]) PT-Bed Mobility Assessment Supine to Sit Supine to Sit Minimal Assistance Sit to Supine Sit to Supine Minimal Assistance PT-Transfer Assessment Sit to and From Stand Sit to and from Stand Contact Guard Assistance Equipment Transfer Assistive Device Gait Belt,Front Wheeled Walker Orthotic/Prosthetic Devices or Brace: No Transfers Transfer Destination Bed Transfer Technique ambulated Transfer Ability Level of Assist Contact Guard Assistance,1 Person Assistance,Use of Upper Extremities Comments Mobility Comments pt sitting on chair with c/o increase R knee pain and stated that she just was doing exercises. set up pt for caregiver training. daughter arrived. has knowledge on how to use safety belt. daughter was able to put safety belt on pt and assisted pt with sit to stand and ambulation using FWW to the bed. pt completed sit to supine and used safety belt to assist with RLE elevation to bed and also daughter assisted with lifting LE up to bed. pt c/o increase pain. pt completed supine to sit min A and daughter assisted. ambulated back to the chair using FWW SBA to CGA. left pt in room with daughter. call light and table placed within reach. Gait Assessment Gait Gait Assistance Required: Contact Guard Assist Distance (Feet) 20 Able to Maintain Weight Bearing Status Yes During Gait Assistive Devices Assistive Device Gait Belt,Front Wheeled Walker Orthotic/Prosthetic Devices or Brace: No Gait Deviations General Gait Pattern Antalgic,Decreased Stride Length,Decreased Feet Clearance Factors Limiting Gait Function Factors Limiting Gait Function Decreased Activity Tolerance, Decreased Strength,Limited Range of Motion,Pain,Poor Balance M5 PT-IP Objective Assessments Start: 01/02/22 17:11 Freq: NEEDED Status: Active Protocol: Document 01/02/22 16:20 AB (Rec: 01/02/22 17:24 AB [id number]) Orientation Orientation/Cognition Level of Alertness Alert Orientation Name,Age,Birthday,Month,Date, Year,Day of Week,Place, Situation Language Function Ability No Deficits Noted Safety Awareness Decreased Safety Awareness Memory Description No Deficits Noted Gross Range of Motion Lower Extremity ROM Impairments R knee extension: ~ 30 deg less to 0 R knee flexion: ~ 50 deg Strength Lower Extremity Strength Assessment Right Impaired Hip 3+/5 Knee 3/5 Coordination Assessment Gross Coordination Gross Coordination WNL Sensation Assessment Sensation Gross Sensation WNL Muscle Tone Muscle Tone WNL Yes M6 PT-IP Treatment Start: 01/02/22 17:11 Freq: NEEDED Status: Active Protocol: Document 01/04/22 13:55 AB (Rec: 01/04/22 14:23 AB [email or web address]) Physical Therapy Treatment Education Education Provided Safety M7 PT-IP Assessment and Plan Start: 01/02/22 17:11 Freq: NEEDED Status: Active Protocol: Document 01/04/22 13:55 AB (Rec: 01/04/22 14:23 AB [email or web address]) PT Summary Assessment and Plan Potential Rehabilitation Potential Good Summary Impairments Pain,ROM,Strength,Balance, Coordination,Sensation,Tone, Cognition,Bed Mobility, Transfers,Gait,Activity Tolerance Progress Towards Goals Slow Progress due to Pain,Slow Progress due to Activity Tolerance Assessment Summary caregiver training conducted and daughter was able to assist pt safely. pt plans to go home today with family to assist her. Goals Bed Mobility Goal Independent Transfer Goal Independent,Front Wheeled Walker Gait Goal Independent,Front Wheel Walker Gait Distance 200 Days to Meet Goals 10 Frequency of Treatment Frequency Of Treatment Twice a Day Treatment Plan Physical Therapy Treatment Plan Bed Mobility Training,Transfer Training,Gait Training, Therapeutic Exercise,Balance Retraining,Post Op Education, Discharge Planning,Hot or Cold Pack,Neuromuscular Re-ed, Coordination Retraining,Manual Therapy Weight Bearing Status Weight Bearing Status Weight Bear as Tolerated Allowed Weight Bearing Amount (enter % RLE WBAT or #) (%) Recommendations To Nursing Amount of Assist Needed 1 Person Assist Discharge Recommendations PT Discharge Recommendations Home with Assistance,Home Health Transportation Needs at Discharge Private Vehicle
--- NOTE | 2022-01-04 14:38 | PC.NURSE ---
Day shift: Paperwork signed and all questions answered. Pt's daughter in room for teachings. MD scripts sent electronic to Pt's pharmacy. Dressing remains CDI w/ quarter sized shadow drainage in the middle and PA aware. Pt has all personal belongings. Left unit via WC w/ OIL WELL LOGGING ENGINEER at approx 1440.
== END 2022-01-04 14:41 | disposition home or self-care (01) ==
LOC: OR 11:38 → AC 11:38
PROVIDERS: Admitting Provider Orthopaedic Surgery; Family Provider Family Medicine; PCP Family Medicine; Referring Provider Orthopaedic Surgery; Visit Provider Orthopaedic Surgery
PROC: 0SRC0JZ Replacement of Right Knee Joint with Synthetic Substitute, Open Approach (ICD-10-PCS; CPT 27447; principal; 2022-01-02 07:45)
DX: M17.11 Unilateral primary osteoarthritis, right knee (principal); D62 Acute posthemorrhagic anemia; I10 Essential (primary) hypertension; G47.33 Obstructive sleep apnea (adult) (pediatric); K21.9 Gastro-esophageal reflux disease without esophagitis; J45.909 Unspecified asthma, uncomplicated; E11.9 Type 2 diabetes mellitus without complications; F41.9 Anxiety disorder, unspecified; Z79.84 Long term (current) use of oral hypoglycemic drugs
CPT/HCPCS: 27447; 36415; 73560; 82962; 85014; 85018; 97110; 97116; 97162; 97530; C1776; G0378; C1713; C9290; J0171; J0690; J1170; J1815; J2250; J2270; J2405; J2704; J3010

== ENCOUNTER 2022-02-27 15:16 | Day surgery (SDC) | payer OTHER, SELFPAY ==
[2022-01-02 11:53] VITALS: BMI 43.0
[2022-02-26 10:58] VITALS: BMI 41.3
[2022-02-27] VITALS (9 sets, daily range): BP systolic 123–173; BP diastolic 67–92; PULSE 81–99; RESP 11–17; TEMP 36.2–36.7; O2SAT 93–99; BMI 41.3
[2022-02-27] MEDS: CELECOXIB 200 MG CAPSULE PO (16:24)
[2022-02-27] MEDS: ACETAMINOPHEN 325 MG TABLET 975 MG PO (16:24)
[2022-02-27 16:36] LABS: COVID19 -Nasal RAPID Negative (Negative)
[2022-02-27] MEDS: LACTATED RINGERS 1,000 ML 84 ML IV ×2 (16:44→18:42)
--- NOTE | 2022-02-27 17:08 | PM.PREOP ---
Pre-operative Note COVID-19 COVID-19 status: Negative Result date/Date tested (Pos, Neg/Pending): 02/27/22 Interval Note History & Physical reviewed/Exam performed by Physician: Yes Changes to H&P: No
[2022-02-27] MEDS: CEFAZOLIN 2 GM/20 ML SYRINGE IV (18:09)
--- NOTE | 2022-02-27 18:20 | SUR.OPER ---
Supine on padded OR bed, head on pillow, arms secured on padded arm boards at <90 degrees abduction, left leg uncrossed, safety belt at lower torso, tape over blanket over left lower leg. Right leg in control of the surgeon.
--- NOTE | 2022-02-27 19:29 | PM.OP.1 ---
Operative Date/Time/Diagnoses Date of procedure: 02/27/22 Time of procedure: 19:29 Pre-op diagnosis: Quadriceps rupture, right leg Post-op diagnosis: same Procedure & Clinicians Procedure: Open quadriceps repair of right knee Same procedure as scheduled: Yes Indications: The patient is a 61-year-old woman who recently underwent a right total knee replacement. Several days ago she slipped and fell and her right leg was forced up behind her buttocks. She developed significant discomfort above the knee replacement and was unable to straighten her leg against gravity. She was seen in the office yesterday to evaluate this. A quadriceps rupture was diagnosed and surgery urgently arranged. She has agreed to surgery after discussion the risks benefits and alternatives. Risks discussed included but were not limited to failure to achieve repair, need for further surgery, stiffness, infection, nerve damage, deep venous thrombosis, pulmonary embolism, stroke, myocardial infarction, permanent paralysis and . Surgeon: Kahlil Alonso Click Yes if Unassisted: Yes Anesthesia Type: General and Peripheral nerve block Operative Notes Findings: Complete transverse rupture of the quadriceps tendon. This was not a dehiscence of the quadriceps closure from the total knee replacement. Closure Type: primary Estimated Blood Loss (mL): 100 Blood products transfused: none Tourniquet time (min): 38 Procedure in detail: The patient was seen in the preoperative area where she identified her right knee as the operative site and this was marked with my initials. She was given a femoral nerve block and then taken to the operating room and placed on the operating room table in a supine position. She underwent induction with general anesthetic. She received preoperative antibiotics. A tourniquet was placed about her proximal right thigh. A director multimedia-out was performed. The right leg was prepared from the toes to the tourniquet with ChloraPrep in the usual fashion and draped through sterile drapes. The leg was elevated to exsanguinated with an Esmarch bandage and the tourniquet inflated to 250 mmHg. Initially the upper half of the total knee incision was reopened by excising the scar. This was later extended about 4 cm proximally and distally to include most of the prior total knee incision. A large amount of hematoma was encountered and this was evacuated. I carefully dissected the quadriceps from the adherent overlying tissue. There had been a robust scarring reaction after surgery and there were no obvious tissue planes so this was carefully carried out to separate the quadriceps from the overlying fat layer. I also lysed adhesions in the joint with my fingers to release the quadriceps from the underlying femur and to reopen the medial and lateral gutters. There was a transverse rupture through both the vastus medialis and lateralis and a cross the tendon. The medial half of the quadriceps tendon had avulsed almost off the patella itself. On the lateral side there were 2 separate portions of tendon there was about a cm and a half of tendon in the deep aspect on the patella and the superficial aspect was ruptured off the patella itself. Three stitches of #2 FiberWire were placed as Krackow sutures. Two were in the proximal quadriceps tendon and the 3rd was in the small portion of deep quadriceps tendon on the patella. This deep suture was then brought out to the appropriate position through the superficial layer to allow later repair between the anterior and posterior fibers. The proximal Krackow sutures were then placed across the patella using a Beath pin with 3 passes of the pin. The outer 2 tunnels had 1 limb each from 1 of the sutures and the central tunnel took the other limb from both sutures. These sutures were then tied over a bony bridge to complete the core of the repair. The deep layer was then sutured to the proximal layer by the previously placed stitch. An 0 Vicryl running suture was then used to close each of the vastus medialis, the vastus lateralis and to over-sew the tendon itself. At this point the wound was copiously irrigated. The tourniquet was deflated for a total tourniquet time of 38 minutes. Hemostasis was obtained with electrocautery. The wound was closed with interrupted 3-0 Vicryl in a subcutaneous layer and gwen for skin. A dressing of sterile 4x4s, an ABD, cast padding and an Shaquille wrap was applied followed by a knee immobilizer. Patient was allowed to awaken from her anesthetic in the operating room and taken to the recovery room in good condition having tolerated the procedure well. Complications: none Post-operative Condition: stable Disposition: PACU Plan for aftercare: The patient will be maintained in the knee immobilizer while weight-bearing for 6 weeks to protect the repair. She will then be allowed to work on range motion. At that point she will be placed in a hinged knee brace and will start at 0-30 degrees for 2 weeks followed by 0-60 for 2 weeks followed by 0-90 for 2 weeks. She will be discharged home this evening. Pain medication has been called into her pharmacy.
[2022-02-27] MEDS: HYDROMORPHONE 2 MG INJ IV ×3 (19:43→20:30)
[2022-02-27] MEDS: OXYCODONE/ACETAMINOPHEN 5/325 TABLET 1 TAB PO (19:47)
[2022-02-27] MEDS: ONDANSETRON 4 MG/2 ML INJ IV ×2 (19:51→21:19)
[2022-02-27] MEDS: OXYCODONE IR 5 MG TABLET PO (20:03)
--- NOTE | 2022-02-27 21:24 | SUR.PHASEI ---
Pt upon discharge became nauseated medicated with zofran IV per order. pt proceeded to have emesis,Glucose checked was 116.
== END 2022-02-27 21:36 | disposition home or self-care (01) ==
PROVIDERS: Family Provider Family Medicine; PCP Family Medicine; Referring Provider Orthopaedic Surgery; Visit Provider Orthopaedic Surgery
PROC: (CPT 27385; principal; 2022-02-27 17:15)
DX: S76.111A Strain of right quadriceps muscle, fascia and tendon, initial encounter (principal); M17.11 Unilateral primary osteoarthritis, right knee; E66.01 Morbid (severe) obesity due to excess calories; G47.33 Obstructive sleep apnea (adult) (pediatric); J45.909 Unspecified asthma, uncomplicated; E11.9 Type 2 diabetes mellitus without complications; I10 Essential (primary) hypertension; G25.81 Restless legs syndrome; K21.9 Gastro-esophageal reflux disease without esophagitis; W01.0XXA Fall on same level from slipping, tripping and stumbling without subsequent striking against object, initial encounter; Z68.41 Body mass index [BMI] 40.0-44.9, adult; Z20.822 Contact with and (suspected) exposure to COVID-19; Z96.651 Presence of right artificial knee joint
CPT/HCPCS: 27385; 82962; 87635; C9803; J0171; J0690; J1170; J2250; J2405; J3010

== ENCOUNTER 2024-05-12 09:58 | Inpatient (IN) | payer OTHER, SELFPAY ==
[2022-01-02 11:53] VITALS: BMI 43.0
[2024-04-28 08:04] VITALS: BMI 40.4
[2024-05-12] VITALS (17 sets, daily range): BP systolic 119–177; BP diastolic 66–94; PULSE 66–102; RESP 15–19; TEMP 36.2–36.9; O2SAT 91–98; BMI 40.2
--- NOTE | 2024-05-12 06:00 | DI.RAD.S_ITS ---
PROCEDURE: XR KNEE RT 1TO2V INDICATIONS: RTKA TECHNIQUE: 2 views of the knee acquired. COMPARISON: [facility], CR, XR KNEE RT 1TO2V, 01/02/2022, 10:30. [facility], CR, XR KNEE ARTHRITIC SERIES RT, 02/19/2024, 13:28. FINDINGS: Bones: Patient is status post revision total knee arthroplasty. Hardware components are in expected positions. Visualized bony structures are intact. Soft tissues: Overlying postoperative changes are noted. IMPRESSION: Expected post-operative appearance of a revision total knee arthroplasty. Approved by: Madi Ignacio M.D. on 05/12/2024 at 20:15
[2024-05-12] MEDS: ACETAMINOPHEN 325 MG TABLET 975 MG PO (10:52)
[2024-05-12] MEDS: MELOXICAM 7.5 MG TABLET 15 MG PO (10:53)
[2024-05-12] MEDS: LACTATED RINGERS 1,000 ML 42 ML IV ×2 (10:55→14:01)
--- NOTE | 2024-05-12 11:55 | SUR.OPER ---
Supine on padded OR bed. Pillow under head, arms secured on padded armboards <90 degree abduction. Safety belt across torso. Non-operative leg secured with tape over blanket over lower leg. Operative leg secured in DeMayo/Patrick/Nathe positioner. Foam padded brace at thigh of operative leg.
--- NOTE | 2024-05-12 12:00 | EKG_ITS ---
[facility] [address] [place] [address] Test Date: 2024-05-12 Pat Name: Shelby Chakraborty Department: Room: A Gender: Female Small Animal Veterinarian: : 1960 Requested By: Order Number: [id number] Reading MD: Des Layne MD Measurements Intervals [place] Rate: 61 P: 33 TN: 140 QRS: -1 QRSD: 82 T: 29 QT: 432 QTc: 434 Interpretive Statements Normal sinus rhythm Cannot rule out Inferior infarct , age undetermined Electronically Signed On 05-13-2024 7:35:57 PDT by Des Layne MD
[2024-05-12] MEDS: CEFAZOLIN 2 GM/100 ML PREMIX 100 ML IV ×2 (12:47→20:59)
--- NOTE | 2024-05-12 12:51 | PM.PREOP ---
Pre-operative Note Interval Note History & Physical reviewed/Exam performed by Physician: Yes Changes to H&P: Yes H&P completed within 30 days and has changed as indicated here:: Has chest pain which she reports is typically caused by anxiety. Repeat EKG obtained and reviewed by anesthesiologist who does not note any significant changes from prior EKGs
[2024-05-12] MEDS: ROPIVACAINE/EPI/CLONIDINE/KET 50 ML SYRINGE INJ (13:24)
[2024-05-12] MEDS: TRANEXAMIC ACID 1,000 MG VIAL 2000 MG INJ ×2 (13:25→14:52)
[2024-05-12] MEDS: VANCOMYCIN 1,000 MG VIAL 1000 MG INTRA-ARTI (13:25)
--- NOTE | 2024-05-12 15:10 | P.OP_ITS ---
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 Procedure & Clinicians Procedure: Isolated tibial component revision right total knee arthroplasty with retention of patellar and femoral components Same procedure as scheduled: Yes Surgeon: Mika Serrato Manager Care: Bebe Pagan Anesthesia Type: General, Peripheral nerve block and Local Operative Notes Estimated Blood Loss (mL): 300 Procedure in detail: Right total knee arthroplasty Paul [employer]hew tibial component revision with placement of stemmed, coned tibial base plate and retention of femoral and patellar components Implants: * Size 3 legion revision right tibial base plate with journey lock detail, a 10 mm finned tibial wedge, and a 12 mm x 160 mm stem * Size 15 Journey II BCS Polyethylene Insert * Size 18, 40 mm long tibial cone * Retained patellar component * Retained femoral component Procedure Summary: This 63-year-old female patient had isolated loosening of her tibial component following a total knee arthroplasty placed by a partner of mine who has since retired. Infection workup including knee aspiration preoperatively was negative. Intraoperatively I found that the femur was well fixed when it was tested. Exposure was made more challenging by her prior quadriceps rupture which she had sustained following her total knee arthroplasty. This had been repaired and appeared intraoperatively to have healed very well. Because of her prior quadriceps rupture I was intent on avoiding a quadriceps snip for exposure of her tibial component. During exposure a portion of the lateral joint line avulsed off. At the conclusion of the procedure that area of avulsion was cemented in place. I was eventually able to sublux the tibia anteriorly after polyethylene removal and disengaged the tibial base plate from the bone cement interface consistent with the preoperative diagnosis of aseptic loosening however the base plate got wedged between the bone and the femoral component making extraction difficult even after it had been disengaged. I prepped a cone and used a cone trial as a template to cut the tibia in mechanical alignment. The base plate was prepped off of that cut and a 10 mm base plate augment with fins on the bottom of it was used to close down her gaps. At the conclusion of the procedure she had no significant flexion instability, good patellar tracking, and full range of motion of the knee in both flexion and extension. Procedure in Detail: This patient was seen preoperatively and evaluated for knee pain which was refractory to numerous nonoperative treatment modalities. Their pain correlated with radiographic changes demonstrating loosening of the prior total knee. Aspiration was obtained and sent for Synovasure indicating no infection in the joint. The risks and benefits of continued nonoperative management versus operative management were discussed at length and all of the patient?s questions were answered. Additional educational materials providing further details beyond our discussion in clinic were provided via a publicly available patient education video which included the incidence of medical complications associated with total knee arthroplasty, reasons for revision following total knee arthroplasty, and patient satisfaction rates following total knee arthroplasty. That video can be accessed at [email or web address] . With this understanding of the risks inherent to the procedure, the patient elected to move forward with operative management. Following preoperative optimization, the patient was scheduled for surgery. The patient was met in the preoperative holding area the day of the procedure and all questions were answered. The patient?s nares were swabbed with betadine in order to decolonize them from MRSA. Informed consent was signed and the right limb was marked with indelible ink.? The patient was brought back to the operating room where anesthesia was induced. The patient was transferred to the operating table and all bony prominences were padded. The operative site was prepped and draped in the usual sterile fashion. A second prep stick was utilized following drape placement. The incision was marked corresponding to the medial aspect of the tibial tubercle and the patella. Ioban was wrapped circumferentially around the knee. Prior to incision, tranexamic acid and cefazolin were administered. Templating images were display ed. A timeout procedure was performed verifying the patient?s identity, medical comorbidities, allergies, relevant medications, anesthesia type and the surgical plan. All present were in agreement. The assistance of a physician water quality assistant was required for positioning, room setup, soft tissue retraction and wound closure. Without this assistance, the procedure would have been significantly more chal lenging and time consuming.?? The tourniquet was inflated prior to incision. I made an anterior incision over the knee, dissected through the subcutaneous tissues and identified the lateral border of the VMO. Medial and lateral soft tissue flaps were developed. A medial parapatellar arthrotomy was performed ensuring that adequate capsular tissue would remain for closure at the conclusion of the procedure. I placed an intraosseous needle into the tibia and infiltrated it with a dilute mixture of 50 cc of vancomycin to fill the surgical site with vancomycin through backflow from the tourniquet. I identified the prior arthrotomy as there were Ethibond sutures in place. I extended the incision proximally and distally and excised the old scar. I exposed the knee and performed a medial release. I also debrided and removed the medial and lateral gutters and sent these for culture. I removed the polyethylene insert with a osteotome. I tested the femoral component by impacting it and found that it was not loose. I placed retractors around the tibia. I did note an avulsion of some bone laterally while placing the lateral retractor initially in an area where the bone appeared to have been stress shielded. I was eventually able to sublux the tibia anteriorly although this did require significant force on the posterior retractor behind the base plate. I used an osteotome to free up the interface between the tibial base plate and the bone and then impacted the base plate upwards. I noted that I was able to free the tibia easily but it was challenging to extract it as it got wedged between the bone and the tibia by the tibial stem on the original base plate. I was eventually able to remove it and removed cement from the joint line as well as the canal. I used rigid reamers to open up the canal and obtain a mechanical axis reference for the tibial base plate. I reamed up to a 15 mm hand cloth folder. I then prepped a cone off of this, reaming up to a 22 mm Reamer. I used the broach for an 18 mm long cone and placed this under the bone in the tibia in the area where the implant had been removed. I used the cone trial as a cutting guide and cut off of the top of it to obtain a mechanical axis tibial resection corresponding to the orientation of the rigid Reamer. I then placed a base plate trial. I found that a size 3 fit appropriately on the surface of the cut tibia. I found that the largest polyethylene still remained loose when trialing so I trialed again but now used a 10 mm augment on the bottom of the tibial component. This placed me into a more reasonable range and I found that a 15 mm polyethylene insert allowed appropriate parameters for manual testing of the knee. The knee was able to achieve full extension without significant laxity with varus or valgus stress. There was approximately 1 mm of opening with valgus stress in the medial compartment however I did not feel it was appropriate to remove the femoral component in an attempt to resolve this 1 mm discrepancy between the medial and lateral compartments. I found that there was no significant flexion instability and the knee was able to fully flex. I therefore plan to place the definitive component. The knee was copiously irrigated. I cleaned the bone ends. I placed the tibial cone. The tibial implant was prepared. I put cement down the tibia and on the cut joint surface including the area where there was an avulsion of lateral bone. I ensured that there was no cement in the interface between the bone and the cone. I then inserted the tibial component, placed a 15 mm polyethylene trial, and placed the knee into full extension. I brought the knee into extension and manually pressurized the construct by pushing on the heel while the cement dried. The knee was bathed in a dilute mixture of betadine and peroxide. A mixture of Ropivacaine, Epinephrine, Clonidine and Toradol was infiltrated throughout the soft tissues into structures including the VMO, patellar tendon, quadriceps tendon, MCL and femoral periosteum. A low adductor canal block was also performed using this mixture unless one had been placed preoperatively by anesthesia. The knee was copiously irrigated with pulse lavage. Once cement had been allowed to dry the knee was again trialed. Range of motion was assessed by ensuring the knee could achieve full extension and assessing maximum passive knee flexion by elevating the femur and allowing the heel to passively fall towards the buttock. Gap symmetry was assessed by stressing the medial and lateral compartments in both extension and flexion. Laxity was assessed in both extension and flexion and the polyethylene trial was adjusted with shims as necessary. Patellar tracking was assessed with knee flexion. The tourniquet was let down and the polyethylene trial was removed. I inspected the knee inspected for excess cement and any residual bleeding. Once hemostasis was achieved I inserted the final polyethylene and ensured appropriate engagement of the dovetail locking mechanism.?? The arthrotomy was closed with absorbable interrupted suture ensuring that this extended to the top of the arthrotomy. This was backed up with running barbed suture throughout the arthrotomy. The skin was closed with 2-0 and 3-0 sutures. Surgical glue was applied and a soft dressing was placed.?The sponge, instrument and needle counts were reported as being correct at the end of the case.??No obvious complications occurred. The patient was transferred from the operating table back to a stretcher. The patient emerged from anesthesia without difficulty and was taken to the PACU in a stable condition.? Plan for aftercare: * Weightbearing as tolerated * Mobilization as soon as the patient has recovered from anesthesia. If physical therapists are unavailable at the time the patient is ready to ambulate, then nursing staff should help patient ambulate * Aspirin 81 twice per day for DVT prophylaxis * Multimodal pain regimen with no IV opioids ordered * Anticipate discharge home tomorrow * Jayde incisional wound VAC was placed and should remain in place for 2 weeks. The battery will after a week at which point the cord can be removed and it can be used as normal dressing until follow up in clinic at the 2 week time point * Cefadroxil 500 mg twice per day for PJI prophylaxis. This is a presumed noninfectious case as preoperative knee aspiration was negative for infection. Three cultures were sent during the procedure and these will be followed however they are not anticipated to result as positives and the patient does not need to remain in the hospital until they result * Follow up at [facility] in 2 weeks * Detailed postoperative instructions available at https: [email or web address]
--- NOTE | 2024-05-12 16:10 | PC.NURSE ---
Day shift: Not is room 203 at this time (1610).
[2024-05-12] MEDS: OXYCODONE IR 5 MG TABLET PO ×2 (16:16→16:36)
[2024-05-12] MEDS: ONDANSETRON 4 MG/2 ML INJ IV (16:16)
[2024-05-12] MEDS: hydrOXYzine 50 MG/ML INJ IM (16:17)
--- NOTE | 2024-05-12 16:52 | PC.NURSE ---
Day shift: Pt in room from PACU at approx 1645. She is sleeping but awakens to voice. Dressing on rt knee is CDI and is a JANA. 2L NC 93%. SCD's in place. Bed alarm is on. Call light in reach and door to room is open. Has tray from kitchen in room. VS WNL. Will continue with post-op plan of care.
[2024-05-12] MEDS: LACTATED RINGERS 1,000 ML 100 ML IV (17:39)
[2024-05-12] MEDS: GABAPENTIN 600 MG TABLET 300 MG PO (20:59)
[2024-05-12] MEDS: DOCUSATE 100 MG CAPSULE PO (20:59)
[2024-05-12] MEDS: ASPIRIN EC 81 MG TABLET PO (20:59)
[2024-05-12] MEDS: HYDROCODONE/ACET 10/325 TABLET 1 TAB PO (20:59)
[2024-05-12] MEDS: PANTOPRAZOLE DR 20 MG TABLET PO (20:59)
[2024-05-12] MEDS: IBUPROFEN 600 MG TABLET PO (21:00)
[2024-05-13] MEDS: CYCLOBENZAPRINE 10 MG TABLET 5 MG PO ×2 (00:31→12:06)
[2024-05-13] MEDS: HYDROCODONE/ACET 10/325 TABLET 1 TAB PO ×6 (00:31→20:24)
[2024-05-13] MEDS: LACTATED RINGERS 1,000 ML 100 ML IV (03:52)
[2024-05-13 04:00] VITALS: BP 134/66; PULSE 75; RESP 18; O2SAT 93
[2024-05-13] MEDS: IBUPROFEN 600 MG TABLET PO ×4 (04:46→20:19)
[2024-05-13] MEDS: CEFAZOLIN 2 GM/100 ML PREMIX 100 ML IV (04:46)
[2024-05-13] MEDS: LEVOTHYROXINE 137 MCG TABLET PO (05:11)
[2024-05-13 06:30] LABS: Hematocrit 32.5 % (36-46); Hemoglobin 11.2 g/dL (12.0-16.0)
[2024-05-13 07:15] VITALS: PULSE 77; O2SAT 95
--- NOTE | 2024-05-13 07:36 | P.DS_ITS ---
History of Present Illness History of Present Illness Date Patient Seen: 05/13/24 Time Patient Seen: 07:36 Chief complaint: Right TKA revision *OPB* Discharge Providers Provider Primary care physician: Teresa Hubbard MD Consults: 05/12/24 06:00 Consult to Anesthesiology Routine Comment: Consulting Provider: Anesthesiologist Reason for consultation: Regional block for post operative pain control 05/12/24 16:49 Consult to Discharge Planning Routine Comment: Consult to Physical Therapy Evaluate & Treat Comment: Physician Instructions: postop TKA protocol Discharge provider: Ellis Gorman PA-C Exam Vital Signs (past 8 hours): - 05/12/24 23:55 05/13/24 04:00 Pulse Rate 73 75 Respiratory Rate 19 18 Blood Pressure 126/73 134/66 Pulse Oximetry 97 93 Oxygen Delivery Method Nasal Cannula Oxygen Flow Rate 2 Objective Labs 05/13/24 06:10 Labs: Laboratory Results - last 24 hr 05/13/24 06:10 Hgb 11.2 L Hct 32.5 L PFSH Medical History Fall from ground level (02/22/22) Morbid (severe) obesity due to excess calories Fibromyalgia NAOMI (obstructive sleep apnea) Pain management contract agreement Diabetes (2020) COVID-19 virus infection (06/2020) Insomnia Depression Anxiety Chronic low back pain Graves' disease Hypothyroidism GERD (gastroesophageal reflux disease) HLD (hyperlipidemia) HTN (hypertension) Sinusitis Asthma RLS (restless legs syndrome) Headache, migraine Surgical History (Updated 04/28/24 @ 13:35 by Hannah Villasenor RN) Hx of knee surgery (02/27/22) Hx of repair of left rotator cuff (09/2023) Hx of removal of cyst (~02/2023) Hx of removal of cyst (~11/2022) History of arthroplasty of right knee (01/02/22) Hx of colonoscopy (2017) Hx of foot surgery Status post trigger finger release History of bilateral carpal tunnel release Hx of arthroscopy of right knee History of orthopedic surgery History of back surgery History of History of hysterectomy Hx of cholecystectomy Hx of sinus surgery History of lumbar spinal fusion (09/04/16) Social History household members: none Smoking Status: Never smoker alcohol intake: current Discharge Plan Discharge orders & Medications Prescriptions: No Action albuterol sulfate [Ventolin HFA] 90 MCG/PUFF HFA aerosol inhaler 1 - 2 puff INH Q4HP PRN (Reason: Shortness Of Breath) Qty: 0 cyclobenzaprine 5 MG tablet 5 mg PO TIDP PRN (Reason: Muscle spasms) Qty: 0 Patient Comments: not used in 3 months fluticasone propionate [Flonase Allergy Relief] 9.9 ML spray,suspension 2 spray Intranasal DAILY Qty: 0 gabapentin [Neurontin] 600 MG tablet 300 mg PO QDAY PRN (Reason: Nerve Pain) Qty: 0 Patient Comments: restless leg tx. hydrochlorothiazide 25 MG tablet 25 mg PO QDAY Qty: 0 levothyroxine [Levoxyl] 200 MCG tablet 137 mcg PO QDAY Qty: 0 lorazepam 1 MG tablet 0.5 - 1 tab PO BIDP PRN (Reason: Anxiety) Qty: 0 Patient Comments: for flying or situation anxiety omeprazole 20 MG capsule,delayed release(DR/EC) 20 mg PO BID Qty: 0 bupropion HCl 100 mg Tablet 300 mg PO DAILY Ozempic 0.25 mg or 0.5 mg (2 mg/3 mL) Pen Injector 100 mg SUBCUT QWEEK Rx Instructions: for 4 weeks aspirin [Aspir-81] 81 mg Tablet,Delayed Release (Dr/Ec) 81 mg PO DAILY hydrocodone-acetaminophen 10-325 mg tablet 1 tab PO Q4H PRN (Reason: Pain (Scale Score 4-6)) Follow up/Referrals: Teresa Hubbard MD [Primary Care Provider] - Mika Serrato MD [Physician] - 05/24/24 1:00 pm (Follow up w/ Mely Rubio PA-C, at [facility] in [place].) Diet/Activity/Treatments Diet: Diet as Tolerated Activity: Weightbearing as tolerated. Walk frequently! Cold/Heat Therapy: Ice to knee as needed for pain. Skin/Wound/Dressing Care Report to your healthcare provider any signs of infection, such as:: chills, fever, night sweats, unusual drainage and unusual redness Dressing: May remove CATHY wrap and cotton padding and shower on 05/15/2024. Leave JANA dressing in place until follow up in office. In 5-7 days, the batteries will , at which point you can cut off the battery pack and dispose of it. Leave the dressing on. No bathing or otherwise soaking incision. Call the office if the dressing becomes saturated. Discharge Data Primary Care Provider: Teresa Hubbard Attending Provider: Mika Serrato
[2024-05-13 08:05] VITALS: BP 110/62; PULSE 72; RESP 19; TEMP 36.3; O2SAT 94
[2024-05-13] MEDS: DOCUSATE 100 MG CAPSULE PO ×2 (08:48→20:18)
[2024-05-13] MEDS: ASPIRIN EC 81 MG TABLET PO ×2 (08:48→20:18)
[2024-05-13] MEDS: buPROPion 100 MG TABLET 300 MG PO (08:49)
[2024-05-13] MEDS: PANTOPRAZOLE DR 20 MG TABLET PO ×2 (08:49→20:17)
--- NOTE | 2024-05-13 09:10 | PT.IIE ---
Current Diagnoses Mechanical loosening of internal right knee prosthetic joint, initial encounter (05/12/24) Surgery Performed Operation Date: 05/12/24 11:45 Actual Procedures p Total Knee Arthroplasty Revision - with tibial component exchange (Right) - Mika Serrato MD Surgical History (Last Updated 04/28/24 @ 13:35 by Hannah Villasenor RN) History of arthroplasty of right knee (01/02/22) History of back surgery History of bilateral carpal tunnel release History of History of hysterectomy History of lumbar spinal fusion (09/04/16) History of orthopedic surgery Hx of arthroscopy of right knee Hx of cholecystectomy Hx of colonoscopy (2017) Hx of foot surgery Hx of knee surgery (02/27/22) Hx of removal of cyst (~11/2022) Hx of removal of cyst (~02/2023) Hx of repair of left rotator cuff (09/2023) Hx of sinus surgery Status post trigger finger release Medical History (Last Reviewed 02/27/22 @ 16:02 by Shani France, SHOSHANA) Anxiety Asthma Chronic low back pain COVID-19 virus infection (06/2020) Depression Diabetes (2020) Fall from ground level (02/22/22) Fibromyalgia GERD (gastroesophageal reflux disease) Graves' disease Headache, migraine HLD (hyperlipidemia) HTN (hypertension) Hypothyroidism Insomnia Morbid (severe) obesity due to excess calories NAOMI (obstructive sleep apnea) Pain management contract agreement RLS (restless legs syndrome) Sinusitis Physical Therapy Inpatient Evaluation/Re-Eval M1 PT/OT-IP Prior Functional Status Start: 05/13/24 08:30 Freq: NEEDED Status: Active Protocol: Document 05/13/24 08:30 MB (Rec: 05/13/24 09:10 MB [id number]) Medical Review Prior Functional Status Medical History Reviewed Yes Diet/Fluid Consistency Regular Communication WNLs Mobility and Gait I Activities of Daily Living and IADL's I, works FT as special education secretary Social History Household Members none Living Arrangements House Number of Floors (Floors) One Floor Number of Stairs To Enter/Railing? No steps to enter or into home Home Environment Standard Height Toilet,Tub/ Shower Home Equipment Front Wheel Walker,Shower Seat without Backrest,Grab Bars Near Toilet,Grab Bars In Shower Employment Status Dry Cleaner Presser Employed Additional Social History Comment Adjustable bed at home M2 PT-IP Current Condition Start: 05/13/24 08:30 Freq: NEEDED Status: Active Protocol: Document 05/13/24 08:30 MB (Rec: 05/13/24 09:10 MB [id number]) Physical Therapy Current Condition Current Condition Evaluation Date 05/13/24 Treatment Diagnosis Revision tibial component R TKR M3 PT-IP Subjective Start: 05/13/24 08:30 Freq: NEEDED Status: Active Protocol: Document 05/13/24 08:30 MB (Rec: 05/13/24 09:10 MB [id number]) Subjective Physical Therapy Visit Type Type Initial Evaluation Visit Start Time 08:30 Visit Stop Time 08:50 Number of DEVELOPMENTAL SPECIALIST Visits 0 Physical Therapy Visit Comments Patient Comments Pt reports high pain and is hoping to d/c tomorrow Therapy Pain Assessment Pain When Pain Assessed At Rest Pain Present Pain Present Pain Reported Location Right Knee Intensity 6 Scale Used Numeric (0 - 10) M4 PT-IP Mobility and Gait Start: 05/13/24 08:30 Freq: NEEDED Status: Active Protocol: Document 05/13/24 08:30 MB (Rec: 05/13/24 09:10 MB [id number]) PT-Bed Mobility Assessment Rolling Type of Rolling Roll to Right Level of Assist Contact Guard Assistance Supine to Sit Supine to Sit Contact Guard Assistance,1 Person Assistance,Head of Bed Elevated,Bedrails Scooting Scooting to Edge of Bed Contact Guard Assistance PT-Transfer Assessment Sit to and From Stand Sit to and from Stand Minimal Assistance,1 Person Assistance,Use of Upper Extremities Equipment Transfer Assistive Device Gait Belt,Front Wheeled Walker Orthotic/Prosthetic Devices or Brace: No Transfers Transfer Destination Chair Transfer Technique Stepping Transfer Ability Level of Assist Minimal Assistance,1 Person Assistance,Use of Upper Extremities Gait Assessment Gait Gait Assistance Required: Minimum Assistance,1 Person Assist Distance (Feet) 3 Able to Maintain Weight Bearing Status Yes During Gait Assistive Devices Assistive Device Gait Belt,Front Wheeled Walker Orthotic/Prosthetic Devices or Brace: No Gait Deviations General Gait Pattern Antalgic,Decreased Stride Length,Decreased Feet Clearance,Flexed Trunk,Step-to Gait,Wide Based Gait Factors Limiting Gait Function Factors Limiting Gait Function Decreased Activity Tolerance, Decreased Strength,Difficulty Following Directions, Incoordination,Limited Range of Motion,Pain,Poor Balance Comments Gait Comments Pt presents with right foot scooting along the floor this morning with gait d/t increased pain PT-Balance Assessment Sitting Balance and Reactions Static Sitting Balance Ability Good Dynamic Sitting Balance Ability Good Standing Balance and Reactions Static Standing Balance Ability Fair Dynamic Standing Balance Ability Fair Device Used RW M5 PT-IP Objective Assessments Start: 05/13/24 08:30 Freq: NEEDED Status: Active Protocol: Document 05/13/24 08:30 MB (Rec: 05/13/24 09:10 MB [id number]) Orientation Orientation/Cognition Level of Alertness Alert Orientation Name,Age,Birthday,Month,Date, Year,Day of Week,Place, Situation Language Function Ability No Deficits Noted Safety Awareness Understands Safety Issues Memory Description No Deficits Noted Gross Range of Motion Upper Extremity ROM Assessment Within Functional Limits Lower Extremity ROM Assessment Right Impaired Impairments Pt has quad quiver with attempted QS right knee and she limits passive movement right knee by guarding right leg with left foot today when scooting out to EOB: left foot under right heel. Observed functional AAROM 20-60 deg this a.m. Strength Upper Extremity Strength Assessment Within Functional Limits Lower Extremity Strength Assessment Right Impaired Comments Strength Comments Pt does not tolerate full ROM and MMT RLE and presents with functional weakness all joints . LLE is functional Coordination Assessment Gross Coordination Gross Coordination Impaired Sensation Assessment Comments Sensation Comments Pt denies sensory changes M6 PT-IP Treatment Start: 05/13/24 08:30 Freq: NEEDED Status: Active Protocol: Document 05/13/24 08:30 MB (Rec: 05/13/24 09:10 MB [id number]) Physical Therapy Treatment Exercises Exercises Ankle Pumps,Quad Sets,Heel Slides Education Education Provided Weight Bearing Status,Safety M7 PT-IP Assessment and Plan Start: 05/13/24 08:30 Freq: NEEDED Status: Active Protocol: Document 05/13/24 08:30 MB (Rec: 05/13/24 09:10 MB [id number]) PT Summary Assessment and Plan Potential Rehabilitation Potential Good Status of Condition at Evaluation Evolving Summary Impairments Pain,ROM,Strength,Balance, Coordination,Bed Mobility, Transfers,Gait,Activity Tolerance Progress Towards Goals Slow Progress due to Pain Assessment Summary Pt is a pleasant 63 y/o female who works hard with PT this a .m. despite high pain in right knee. She presents with edema in ankle and leg and limited ROM and strength. Pt lives at home alone and will have some daughter and neighbor assistance starting tomorrow. She mobilizes in bed with heavy use of bed adjustments and increased time and she takes a few antalgic steps to chair with min A and RW this a .m. Pt will benefit from PT to improve bed mobility, transfers and gait. Goals Bed Mobility Goal Independent Transfer Goal Independent,Front Wheeled Walker Gait Goal Independent,Front Wheel Walker Gait Distance 150 Days to Meet Goals 3 Frequency of Treatment Frequency Of Treatment Twice a Day Treatment Plan Physical Therapy Treatment Plan Bed Mobility Training,Transfer Training,Gait Training, Therapeutic Exercise,Balance Retraining,Post Op Education, Discharge Planning,Hot or Cold Pack,Neuromuscular Re-ed, Coordination Retraining,Manual Therapy Weight Bearing Status Weight Bearing Status Weight Bear as Tolerated Recommendations To Nursing Amount of Assist Needed 1 Person Assist Discharge Recommendations PT Discharge Recommendations Home with Assistance, Outpatient PT Transportation Needs at Discharge Private Vehicle
--- NOTE | 2024-05-13 09:27 | CM.DANOTE ---
Initial DCP Assessment Visit Note Reviewed EMR and team rounds for status updates. Met with pt at bedside to introduce self and role, pt was found to be sitting in the recliner, grimacing and c/o acute pain. She lives alone in her own home in [place], her dtr will be available to assist her, but not until tomorrow. Dtr will also plan to transport her home. Payor: [facility] Attending: Dr. Serrato Pt is a 63 year-old F post-op day 1 from a R-TKA revision surgery. Pt has a hx of worsening bilateral knee pain, she had her original R-TKA done on 01/02/22, however then fell and ripped her R-knee quadricept, which again required surgery. She has since had worsening pain and radiculopathy all the way down her R-leg, and states she can hardly walk on it before it stiffens up. Plan is to keep her 1-more night and d/c home on 05/14. Discharge Planning/Care Management CM Discharge Assessment Start: 05/13/24 09:08 Freq: Status: Active Protocol: Document 05/13/24 09:08 DPL (Rec: 05/13/24 09:27 DPL [id number]) Discharge Planning Assessment Assigned Telecom Analyst GARCIA Tubbs Advance Directives? No History Provided By Patient,Medical Record Has Patient been admitted in last 30 No days? Prior Living Arrangements House Household Members none Type of transporation used prior to Drives own vehicle admit Independent with ADL's Yes Is patient alert and oriented? Yes Caregiver for Another No DME Already Rented / Owned FWW / Walker,Cane Barriers to Discharge Yes Comment Pain, no cg until tomorrow. Discharge Plan Home with Home [facility] Physical Therapy Transportation Arrangement Family Additional Comment Need to discuss home health services w/patient; possible referral Whiteboard Updated in Patient Room with Yes name and ext. # of Telecom Analyst Review Status In Process Please Provide Date Initial DC 05/13/24 Assessment Was Performed Pre-Anesthesia Assessment Start: 04/28/24 08:04 Freq: Status: Complete Protocol: Document 04/28/24 08:04 CAB (Rec: 04/28/24 09:24 CAB [id number]) Pre-Anesthesia Assessment Patient Information Reviewed Via Phone Assessment Assessment Completed With Patient Diagnostic Results BMP/CMP,CBC,EKG Comment Outside labs/EKG scanned Primary Care Provider Teresa Hubbard Comment Clearance form 03/15/24 scanned Medical Clearance Received Yes Seen Specialist in Last 12 Months Yes Specialist Seen Orthopedist Primary Language Serbian Preferred Language Serbian Senior Account Director Required No Height 152.4 cm Weight 93.894 kg Body Mass Index (BMI) 40.4 Hearing Ability Normal Visual Assist Glasses Dentition Type Teeth, Natural Present Barriers to Learning None Hx Anesthesia Reactions No Hx Family Anesthesia Reaction No Hx Malignant Hyperthermia No Hx Blood Transfusions No Hx Blood Transfusion Reaction No Anesthesia Review Requested No Management Tech No alcohol intake current alcohol intake frequency holidays/special occasions only Smoking Status Never smoker Substance Use Type does not use Pain Present Pain Reported Musculoskeletal Symptoms Abnormal Gait,Difficulty Walking,Joint Pain History of Falling (Recent or History of No ) Patient is completely paralyzed or No completely immobile Prosthesis or Orthotic Device Cane Mental Status Oriented to own ability Is patient on oxygen? No Does patient have PEREZ/SOB No Hx Sleep Apnea Yes: No longer wears CPAP after recent sinus surgery CPAP/BIPAP use prescribed not used Currently Taking a Beta Kev No Can You Climb a Flight of Stairs Without Yes SOB Hx Chest Pain No Hx SOB No Hx Syncope or Dizziness No Anti-Coagulant Therapy No Has a 2Nd Grade Teacher No Cardiac Testing No Hx Pacemaker/ICD No Pacemaker Rep Required? No Cardiac Clearance Received No Diet Type At Home Regular Dysphagia No Gastrointestinal Symptoms Constipation,Reflux Bladder Pattern Frequency Urinary Catheter Present No Hx Urinary Self Catheterization No Diabetes Yes: Diagnosed in 2020, checks blood sugar each am HgbA1C 6.3 Date 03/15/24 Patient No Lactating No Hx Drug Resistant Organism No Presence of External or Internal Medical Yes: Cervical, right foot, Devices right knee, lumbar cage Received a COVID vaccine? Yes: booster x 1 Marital Status Single Lives With none Current Living Arrangements House Number of Floors (Floors) One Floor Support System Child/Children Does the Patient Have Assistance After Yes: Granddaughter will stay w Surgery /pt to assist w/care, daughter will be around Patient Discharge Plan Description Return Home Comment Pt advised overnight length of stay per surgeon Feels Safe in Current Environment Yes Been Physically Hurt or Threatened By a No Person in Current Environment Do you have thoughts of harming yourself None or others? Are you currently considering suicide? No Do you have a plan to hurt yourself or No Plan others? Do You Have Any Spiritual Beliefs That No May Affect Your HC Choices? Do You Have Any Cultural Practices That No May Affect Your HC Choices? Comment Yazdanism Who Can We Speak to About Patient's Care Family, friends Identifying Code for Release of Patient Declines to issue Information Health Care Proxy/Next of Kin Christiano (daughter) Health Care Proxy Emergency Contact Name Christiano (daughter) Emergency Contact Advance Directives? No Power of Free Lance Model No PAC Instructions Assistance for 24 hours post- op,Diabetes instructions,Do not shave/clip surgical site, Durable medical equipment, Medications to take/avoid,No ETOH/petroleum product on skin DOS,NPO,Post-op transportation,Pre-surgical wash,Sensory aids,Sturdy shoes /comfortable clothes,Do not bring valuables and remove jewelry
--- NOTE | 2024-05-13 11:59 | P.PN_ITS ---
Subjective Subjective Date Patient Seen: 05/13/24 Time Patient Seen: 07:36 Interval history: Patient states that she is feeling well at this time. Admits some difficulty having pain controlled with oral medication. Does admit that she is on a pre-op pain contract in which she takes [place] 10/325 every 4 hours on an as-needed basis. She states there is nobody at home to take care of her if discharged today. Exam Vital Signs (past 8 hours): - 05/13/24 04:00 05/13/24 07:15 05/13/24 08:05 Temperature 97.3 F L Pulse Rate 75 77 72 Respiratory Rate 18 19 Blood Pressure 134/66 110/62 Pulse Oximetry 93 95 94 Oxygen Delivery Method Room Air Oxygen Flow Rate 0 0 Fraction of Inspired Oxygen 21 Fraction of Inspired Oxygen 21 SaO2/FiO2 Ratio 452 Oxygen Delivery Method Room Air Oxygen Flow Rate 0 Narrative Exam Narrative: 5/5 strength in hip flexors, quadriceps, hamstrings, DF, PF, EHL bilaterally. Sensation to light touch intact throughout BLE. Calves soft, compressible, nontender. ?Dressing placed intraoperatively CDI. Objective Labs 05/13/24 06:10 Labs: Laboratory Results - last 24 hr 05/13/24 06:10 Hgb 11.2 L Hct 32.5 L PFSH Medical History Fall from ground level (02/22/22) Morbid (severe) obesity due to excess calories Fibromyalgia NAOMI (obstructive sleep apnea) Pain management contract agreement Diabetes (2020) COVID-19 virus infection (06/2020) Insomnia Depression Anxiety Chronic low back pain Graves' disease Hypothyroidism GERD (gastroesophageal reflux disease) HLD (hyperlipidemia) HTN (hypertension) Sinusitis Asthma RLS (restless legs syndrome) Headache, migraine Surgical History (Updated 04/28/24 @ 13:35 by Hannah Villasenor RN) Hx of knee surgery (02/27/22) Hx of repair of left rotator cuff (09/2023) Hx of removal of cyst (~02/2023) Hx of removal of cyst (~11/2022) History of arthroplasty of right knee (01/02/22) Hx of colonoscopy (2017) Hx of foot surgery Status post trigger finger release History of bilateral carpal tunnel release Hx of arthroscopy of right knee History of orthopedic surgery History of back surgery History of History of hysterectomy Hx of cholecystectomy Hx of sinus surgery History of lumbar spinal fusion (09/04/16) Social History household members: none Smoking Status: Never smoker alcohol intake: current Assessment & Plan Post-op Postoperative Procedures: Procedures Operation Date: 05/12/24 11:45 Actual Procedure Side Surgeon p Total Knee Arthroplasty Revision - with tibial component exchange Right Mika Serrato MD Postoperative day: 1 Postoperative status: doing well Postoperative plan: routine post-op care Postoperative plan narrative: Patient will work with physical therapy for ambulation. Multimodal pain control with oral medications. This may be difficult as the patient is taking [place] 10/325 preoperatively. Continue with aspirin 81 mg twice a day for DVT prophylaxis. Re-evaluate tomorrow for discharge to home. Time Spent With Patient Time with patient: less than 15 minutes
--- NOTE | 2024-05-13 12:52 | PT.IPTN ---
Current Diagnoses Mechanical loosening of internal right knee prosthetic joint, initial encounter (05/12/24) Surgery Performed Operation Date: 05/12/24 11:45 Actual Procedures p Total Knee Arthroplasty Revision - with tibial component exchange (Right) - Mika Serrato MD Physical Therapy Treatment Note M2 PT-IP Current Condition Start: 05/13/24 08:30 Freq: NEEDED Status: Active Protocol: Document 05/13/24 08:30 MB (Rec: 05/13/24 09:10 MB [id number]) Physical Therapy Current Condition Current Condition Evaluation Date 05/13/24 Treatment Diagnosis Revision tibial component R TKR M3 PT-IP Subjective Start: 05/13/24 08:30 Freq: NEEDED Status: Active Protocol: Document 05/13/24 13:51 TS (Rec: 05/13/24 14:06 TS [id number]) Subjective Physical Therapy Visit Type Type Treatment Note Visit Start Time 12:52 Visit Stop Time 13:15 Number of ELECTRICAL HIGH TENSION TESTER Visits 1 Physical Therapy Visit Comments Patient Comments Pt reports high pain with walking, she is agreeable to PT. Therapy Pain Assessment Pain When Pain Assessed At Rest Pain Present Pain Present Pain Reported M4 PT-IP Mobility and Gait Start: 05/13/24 08:30 Freq: NEEDED Status: Active Protocol: Document 05/13/24 13:51 TS (Rec: 05/13/24 14:06 TS [id number]) PT-Transfer Assessment Sit to and From Stand Sit to and from Stand Contact Guard Assistance,1 Person Assistance,Use of Upper Extremities Equipment Transfer Assistive Device Gait Belt,Front Wheeled Walker Orthotic/Prosthetic Devices or Brace: No Comments Mobility Comments STS with FWW CGA, pt demonstrates good carryover of sequencing. She ambulated ~20 ' in room CGA with FWW, pt has an increase in pain. She performed quad sets, glute sets, ankle pumps, and heel slides. Pt was left in chair, all needs met. Gait Assessment Gait Gait Assistance Required: Contact Guard Assist,1 Person Assist Distance (Feet) 20 Able to Maintain Weight Bearing Status Yes During Gait Assistive Devices Assistive Device Gait Belt,Front Wheeled Walker Orthotic/Prosthetic Devices or Brace: No Gait Deviations General Gait Pattern Antalgic,Decreased Stride Length,Decreased Feet Clearance,Flexed Trunk,Step-to Gait,Wide Based Gait Factors Limiting Gait Function Factors Limiting Gait Function Decreased Activity Tolerance, Decreased Strength,Difficulty Following Directions, Incoordination,Limited Range of Motion,Pain,Poor Balance PT-Balance Assessment Sitting Balance and Reactions Static Sitting Balance Ability Good Dynamic Sitting Balance Ability Good Standing Balance and Reactions Static Standing Balance Ability Fair Dynamic Standing Balance Ability Fair Device Used RW M5 PT-IP Objective Assessments Start: 05/13/24 08:30 Freq: NEEDED Status: Active Protocol: Document 05/13/24 08:30 MB (Rec: 05/13/24 09:10 MB [id number]) Orientation Orientation/Cognition Level of Alertness Alert Orientation Name,Age,Birthday,Month,Date, Year,Day of Week,Place, Situation Language Function Ability No Deficits Noted Safety Awareness Understands Safety Issues Memory Description No Deficits Noted Gross Range of Motion Upper Extremity ROM Assessment Within Functional Limits Lower Extremity ROM Assessment Right Impaired Impairments Pt has quad quiver with attempted QS right knee and she limits passive movement right knee by guarding right leg with left foot today when scooting out to EOB: left foot under right heel. Observed functional AAROM 20-60 deg this a.m. Strength Upper Extremity Strength Assessment Within Functional Limits Lower Extremity Strength Assessment Right Impaired Comments Strength Comments Pt does not tolerate full ROM and MMT RLE and presents with functional weakness all joints . LLE is functional Coordination Assessment Gross Coordination Gross Coordination Impaired Sensation Assessment Comments Sensation Comments Pt denies sensory changes M6 PT-IP Treatment Start: 05/13/24 08:30 Freq: NEEDED Status: Active Protocol: Document 05/13/24 13:51 TS (Rec: 05/13/24 14:06 [id number]) Physical Therapy Treatment Exercises Exercises Ankle Pumps,Gluteal Sets,Quad Sets,Heel Slides Education Education Provided Weight Bearing Status,Safety M7 PT-IP Assessment and Plan Start: 05/13/24 08:30 Freq: NEEDED Status: Active Protocol: Document 05/13/24 13:51 TS (Rec: 05/13/24 14:06 [id number]) PT Summary Assessment and Plan Potential Rehabilitation Potential Good Summary Impairments Pain,ROM,Strength,Balance, Coordination,Bed Mobility, Transfers,Gait,Activity Tolerance Progress Towards Goals Progressing Toward Goals Assessment Summary Shelby is making progress with her mobility. She is CGA for STS with use of FWW and she demonstrates good carryover of STS technique. She progressed her gait to ~20'CGA with FWW. PT is recommending home with assist. Goals Bed Mobility Goal Independent Transfer Goal Independent,Front Wheeled Walker Gait Goal Independent,Front Wheel Walker Gait Distance 150 Days to Meet Goals 3 Frequency of Treatment Frequency Of Treatment Twice a Day Treatment Plan Physical Therapy Treatment Plan Bed Mobility Training,Transfer Training,Gait Training, Therapeutic Exercise,Balance Retraining,Post Op Education, Discharge Planning,Hot or Cold Pack,Neuromuscular Re-ed, Coordination Retraining,Manual Therapy Weight Bearing Status Weight Bearing Status Weight Bear as Tolerated Recommendations To Nursing Amount of Assist Needed 1 Person Assist Discharge Recommendations PT Discharge Recommendations Home with Assistance, Outpatient PT Transportation Needs at Discharge Private Vehicle
--- NOTE | 2024-05-13 12:59 | P.PN_ITS ---
Subjective Subjective Interval history: HPI: Shelby Chakraborty underwent a revision of the tibial component of her total knee arthroplasty yesterday. She reported pain, but noted it was not as severe as the pain she experienced with her initial knee replacement. She has been keeping up with her pain medication and has been able to get up and walk to the bathroom three times since the surgery. She mentioned some swelling in her leg, but it was not causing her concern. PRIOR HIP/KNEE PROCEDURES: - Revision of tibial component of total knee arthroplasty performed by myself on 06/01/24 - Initial total knee replacement performed by Dr. Alonso - Quadriceps tear repair by Dr. Alonso early after the total knee PHYSICAL EXAM: Knee Exam: - Examination: Slight swelling observed. No gross deformity. - Gait: Patient has been able to walk to the bathroom three times post-surgery. - ROM: Encouraged to keep the leg straight and bend it back to 90 degrees. - Palpation: Mild tenderness ASSESSMENT: Status post revision of tibial component of total knee arthroplasty. PLAN: Discussed with the patient the importance of keeping the leg straight and bending it back to 90 degrees to maintain range of motion. Emphasized the need for rest and not rushing the rehabilitation process to allow the body to heal properly. Advised to use ice to manage swelling. Encouraged to continue working with physical therapy and to stay an additional night in the hospital for monitoring. - Keep leg straight and bend back to 90 degrees - Use ice to manage swelling - Continue working with physical therapy - Stay additional night in the hospital for monitoring - Plan for discharge tomorrow if progress is satisfactory Exam Vital Signs (past 8 hours): - 05/13/24 07:15 05/13/24 08:05 Temperature 97.3 F L Pulse Rate 77 72 Respiratory Rate 19 Blood Pressure 110/62 Pulse Oximetry 95 94 Oxygen Delivery Method Room Air Oxygen Flow Rate 0 0 Fraction of Inspired Oxygen 21 Fraction of Inspired Oxygen 21 SaO2/FiO2 Ratio 452 Oxygen Delivery Method Room Air Oxygen Flow Rate 0 Objective Labs 05/13/24 06:10 Labs: Laboratory Results - last 24 hr 05/13/24 06:10 Hgb 11.2 L Hct 32.5 L [facility] Medical History Fall from ground level (02/22/22) Morbid (severe) obesity due to excess calories Fibromyalgia NAOMI (obstructive sleep apnea) Pain management contract agreement Diabetes (2020) COVID-19 virus infection (06/2020) Insomnia Depression Anxiety Chronic low back pain Graves' disease Hypothyroidism GERD (gastroesophageal reflux disease) HLD (hyperlipidemia) HTN (hypertension) Sinusitis Asthma RLS (restless legs syndrome) Headache, migraine Surgical History (Updated 04/28/24 @ 13:35 by Hannah Villasenor RN) Hx of knee surgery (02/27/22) Hx of repair of left rotator cuff (09/2023) Hx of removal of cyst (~02/2023) Hx of removal of cyst (~11/2022) History of arthroplasty of right knee (01/02/22) Hx of colonoscopy (2017) Hx of foot surgery Status post trigger finger release History of bilateral carpal tunnel release Hx of arthroscopy of right knee History of orthopedic surgery History of back surgery History of History of hysterectomy Hx of cholecystectomy Hx of sinus surgery History of lumbar spinal fusion (09/04/16) Social History household members: none Smoking Status: Never smoker alcohol intake: current Assessment & Plan Time-Based Coding :: [TOTAL MINUTES] spent with patient and on the chart (including review of chart, obtaining history, exam, reviewing outside data, placing orders, documenting exam and treatment plan, and counseling patient) on [DATE].
[2024-05-13 20:00] VITALS: BP 163/62; PULSE 77; RESP 18; TEMP 36.8; O2SAT 96
[2024-05-13] MEDS: hydroCHLOROthiazide 25 MG TABLET PO (20:18)
[2024-05-13 21:24] VITALS: BP 156/80; PULSE 70
[2024-05-14] MEDS: GABAPENTIN 600 MG TABLET 300 MG PO (00:07)
[2024-05-14] MEDS: HYDROCODONE/ACET 10/325 TABLET 1 TAB PO ×2 (03:25→08:24)
[2024-05-14] MEDS: IBUPROFEN 600 MG TABLET PO (03:25)
[2024-05-14] MEDS: LEVOTHYROXINE 137 MCG TABLET PO (06:14)
--- NOTE | 2024-05-14 06:39 | P.DS_ITS ---
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 Procedure & Clinicians Procedure: Isolated tibial component revision right total knee arthroplasty with retention of patellar and femoral components Same procedure as scheduled: Yes Surgeon: Mika Serrato Basketball Player: Bebe Pagan Anesthesia Type: General, Peripheral nerve block and Local Operative Notes Estimated Blood Loss (mL): 300 Procedure in detail: Right total knee arthroplasty [employer] tibial component revision with placement of stemmed, coned tibial base plate and retention of femoral and patellar components Implants: * Size 3 legion revision right tibial base plate with journey lock detail, a 10 mm finned tibial wedge, and a 12 mm x 160 mm stem * Size 15 Journey II BCS Polyethylene Insert * Size 18, 40 mm long tibial cone * Retained patellar component * Retained femoral component Discharge Providers Provider Date of admission: 05/12/24 09:58 Discharge Date: 05/14/24 Primary care physician: Teresa Hubbard MD Consults: 05/12/24 06:00 Consult to Anesthesiology Routine Comment: Consulting Provider: Anesthesiologist Reason for consultation: Regional block for post operative pain control 05/12/24 16:49 Consult to Discharge Planning Routine Comment: Consult to Physical Therapy Evaluate & Treat Comment: Physician Instructions: postop TKA protocol Discharge provider: Bebe Pagan PA-C Summary Hospital Course Discharge Diagnosis: 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 On the morning of POD# 2, she was continuing to c/o pressure-type pain to the knee that kept her up most of the night. The CATHY wrap and cotton padding were removed, and she felt much better. She was eating and voiding without difficulty and her pain was well-controlled w/ her baseline of 60 MME of hydrocodone daily. She was evaluated by PT and they felt she was appropriate for discharge home. At the time of discharge, cultures sent intraoperatively showed no organisms on gram stain; aerobic were preliminarily negative; anaerobic were pending. Exam Vital Signs (past 8 hours): Fraction of Inspired Oxygen 21 SaO2/FiO2 Ratio 452 Oxygen Delivery Method Room Air Oxygen Flow Rate 0 Narrative Exam Narrative: 4/5 hip flexors, quadriceps, hamstrings; 5/5 PF, DF, EHL on right. Sensation to light touch intact throughout RLE, calf soft and compressible. JANA dressing functioning w/ scant bloody drainage. Globalized swelling about joint. Objective Labs 05/13/24 06:10 [facility] Medical History Fall from ground level (02/22/22) Morbid (severe) obesity due to excess calories Fibromyalgia NAOMI (obstructive sleep apnea) Pain management contract agreement Diabetes (2020) COVID-19 virus infection (06/2020) Insomnia Depression Anxiety Chronic low back pain Graves' disease Hypothyroidism GERD (gastroesophageal reflux disease) HLD (hyperlipidemia) HTN (hypertension) Sinusitis Asthma RLS (restless legs syndrome) Headache, migraine Surgical History (Updated 04/28/24 @ 13:35 by Hannah Villasenor RN) Hx of knee surgery (02/27/22) Hx of repair of left rotator cuff (09/2023) Hx of removal of cyst (~02/2023) Hx of removal of cyst (~11/2022) History of arthroplasty of right knee (01/02/22) Hx of colonoscopy (2017) Hx of foot surgery Status post trigger finger release History of bilateral carpal tunnel release Hx of arthroscopy of right knee History of orthopedic surgery History of back surgery History of History of hysterectomy Hx of cholecystectomy Hx of sinus surgery History of lumbar spinal fusion (09/04/16) Social History household members: none Smoking Status: Never smoker alcohol intake: current Discharge Assessment & Plan Assessment and Plan Assessment: 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 Pt receives hydrocodone 10/325mg 6/day from her PCP; additional oxycodone sent for acute post-op pain. Cefadroxil 500mg BID x 7 days for PJI prophylaxis. Discharge Plan Discharge Plan Patient Disposition: Home Provider Discharge Comment: DC pending PT approval Discharge orders & Medications Prescriptions: New aspirin 81 mg Tablet,Delayed Release (Dr/Ec) 81 mg PO BID Qty: 90 0RF oxycodone 5 mg tablet 5 mg PO Q6H PRN (Reason: pain (scale score 7-10)) Qty: 20 0RF Continued albuterol sulfate [Ventolin HFA] 90 MCG/PUFF HFA aerosol inhaler 1 - 2 puff INH Q4HP PRN (Reason: Shortness Of Breath) Qty: 0 cyclobenzaprine 5 MG tablet 5 mg PO TIDP PRN (Reason: Muscle spasms) Qty: 0 Patient Comments: not used in 3 months fluticasone propionate [Flonase Allergy Relief] 9.9 ML spray,suspension 2 spray Intranasal DAILY Qty: 0 gabapentin [Neurontin] 600 MG tablet 300 mg PO QDAY PRN (Reason: Nerve Pain) Qty: 0 Patient Comments: restless leg tx. hydrochlorothiazide 25 MG tablet 25 mg PO QDAY Qty: 0 levothyroxine [Levoxyl] 200 MCG tablet 137 mcg PO QDAY Qty: 0 lorazepam 1 MG tablet 0.5 - 1 tab PO BIDP PRN (Reason: Anxiety) Qty: 0 Patient Comments: for flying or situation anxiety omeprazole 20 MG capsule,delayed release(DR/EC) 20 mg PO BID Qty: 0 bupropion HCl 100 mg Tablet 300 mg PO DAILY Ozempic 0.25 mg or 0.5 mg (2 mg/3 mL) Pen Injector 100 mg SUBCUT QWEEK Rx Instructions: for 4 weeks hydrocodone-acetaminophen 10-325 mg tablet 1 tab PO Q4H PRN (Reason: Pain (Scale Score 4-6)) Discontinued aspirin [Aspir-81] 81 mg Tablet,Delayed Release (Dr/Ec) 81 mg PO DAILY Follow up/Referrals: Teresa Hubbard MD [Primary Care Provider] - Mika Serrato MD [Physician] - 05/24/24 1:00 pm (Follow up w/ Mely Rubio PA-C, at [facility] in [place].) Diet/Activity/Treatments Diet: Diet as Tolerated Activity: Weightbearing as tolerated. Walk frequently! Cold/Heat Therapy: Ice to knee as needed for pain. Skin/Wound/Dressing Care Report to your healthcare provider any signs of infection, such as:: chills, fever, night sweats, unusual drainage and unusual redness Dressing: May shower. Leave JANA dressing in place until follow up in office. In 5-7 days, the batteries will , at which point you can cut off the battery pack and dispose of it. Leave the dressing on. No bathing or otherwise soaking incision. Call the office if the dressing becomes saturated. Visit Report/Discharge Packet Instructions: DI for Knee Replacement, DI for Prescription Opioid Use Stand Alone Forms: Patient Portal/API, Surgery Discharge Discharge Data Primary Care Provider: Teresa Hubbard
[2024-05-14 08:00] VITALS: BP 115/77; PULSE 94; RESP 16; TEMP 36.1; O2SAT 98
[2024-05-14] MEDS: PANTOPRAZOLE DR 20 MG TABLET PO (08:24)
[2024-05-14] MEDS: ASPIRIN EC 81 MG TABLET PO (08:24)
[2024-05-14] MEDS: hydroCHLOROthiazide 25 MG TABLET PO (08:24)
[2024-05-14] MEDS: buPROPion 100 MG TABLET 300 MG PO (08:29)
[2024-05-14] MEDS: DOCUSATE 100 MG CAPSULE PO (08:29)
--- NOTE | 2024-05-14 08:48 | CM.DPNOTE ---
DCP Continued: Reviewed EMR and team rounds for pt?s medical status. Per Provider notes, patient is ready for discharge (order in) and PT recommending home with assistance. Per CM team, it has been identified that pt's daughter will be available for transport at discharge and initial care needs when discharged. No discharge needs identified at this time. Plan: Anticipating discharge home with daughter to transport when medically stable. CM Team will continue to follow for coordination of discharge plans. JOAQUINA Sharma
--- NOTE | 2024-05-14 09:05 | PT.IPTN ---
Current Diagnoses Mechanical loosening of internal right knee prosthetic joint, initial encounter (05/12/24) Presence of unspecified artificial knee joint (05/12/24) Surgery Performed Operation Date: 05/12/24 11:45 Actual Procedures p Total Knee Arthroplasty Revision - with tibial component exchange (Right) - Mika Serrato MD Physical Therapy Treatment Note M2 PT-IP Current Condition Start: 05/13/24 08:30 Freq: NEEDED Status: Active Protocol: Document 05/13/24 08:30 MB (Rec: 05/13/24 09:10 MB [id number]) Physical Therapy Current Condition Current Condition Evaluation Date 05/13/24 Treatment Diagnosis Revision tibial component R TKR M3 PT-IP Subjective Start: 05/13/24 08:30 Freq: NEEDED Status: Active Protocol: Document 05/14/24 09:23 TS (Rec: 05/14/24 09:29 TS [id number]) Subjective Physical Therapy Visit Type Type Treatment Note Visit Start Time 09:05 Visit Stop Time 09:20 Number of PRODUCTION OPERATIONS MANAGER Visits 2 Physical Therapy Visit Comments Patient Comments Pt found sitting on bench, she is agreeable to PT. Therapy Pain Assessment Pain When Pain Assessed At Rest Pain Present Pain Present Pain Reported M4 PT-IP Mobility and Gait Start: 05/13/24 08:30 Freq: NEEDED Status: Active Protocol: Document 05/14/24 09:23 TS (Rec: 05/14/24 09:29 TS [id number]) PT-Transfer Assessment Sit to and From Stand Sit to and from Stand Standby Assistance Equipment Transfer Assistive Device Gait Belt,Front Wheeled Walker Orthotic/Prosthetic Devices or Brace: No Comments Mobility Comments STS from bench with FWW SBA. Pt ambulated 25 in the room with a slow step to gait. Pt sat back on bench, was educated on the intensity and frequency of ther-ex. Pt was left with friend in the room, all needs met. Gait Assessment Gait Gait Assistance Required: Standby Assistance Distance (Feet) 25 Able to Maintain Weight Bearing Status Yes During Gait Assistive Devices Assistive Device Gait Belt,Front Wheeled Walker Orthotic/Prosthetic Devices or Brace: No Gait Deviations General Gait Pattern Antalgic,Decreased Stride Length,Decreased Feet Clearance,Flexed Trunk,Step-to Gait,Wide Based Gait Factors Limiting Gait Function Factors Limiting Gait Function Decreased Activity Tolerance, Decreased Strength,Difficulty Following Directions, Incoordination,Limited Range of Motion,Pain,Poor Balance PT-Balance Assessment Sitting Balance and Reactions Static Sitting Balance Ability Good Dynamic Sitting Balance Ability Good Standing Balance and Reactions Static Standing Balance Ability Fair Dynamic Standing Balance Ability Fair Device Used FWW M5 PT-IP Objective Assessments Start: 05/13/24 08:30 Freq: NEEDED Status: Active Protocol: Document 05/13/24 08:30 MB (Rec: 05/13/24 09:10 MB [id number]) Orientation Orientation/Cognition Level of Alertness Alert Orientation Name,Age,Birthday,Month,Date, Year,Day of Week,Place, Situation Language Function Ability No Deficits Noted Safety Awareness Understands Safety Issues Memory Description No Deficits Noted Gross Range of Motion Upper Extremity ROM Assessment Within Functional Limits Lower Extremity ROM Assessment Right Impaired Impairments Pt has quad quiver with attempted QS right knee and she limits passive movement right knee by guarding right leg with left foot today when scooting out to EOB: left foot under right heel. Observed functional AAROM 20-60 deg this a.m. Strength Upper Extremity Strength Assessment Within Functional Limits Lower Extremity Strength Assessment Right Impaired Comments Strength Comments Pt does not tolerate full ROM and MMT RLE and presents with functional weakness all joints . LLE is functional Coordination Assessment Gross Coordination Gross Coordination Impaired Sensation Assessment Comments Sensation Comments Pt denies sensory changes M6 PT-IP Treatment Start: 05/13/24 08:30 Freq: NEEDED Status: Active Protocol: Document 05/14/24 09:23 TS (Rec: 05/14/24 09:29 TS [id number]) Physical Therapy Treatment Education Education Provided Weight Bearing Status,Safety M7 PT-IP Assessment and Plan Start: 05/13/24 08:30 Freq: NEEDED Status: Active Protocol: Document 05/14/24 09:23 TS (Rec: 05/14/24 09:29 TS [id number]) PT Summary Assessment and Plan Potential Rehabilitation Potential Good Summary Impairments Pain,ROM,Strength,Balance, Coordination,Bed Mobility, Transfers,Gait,Activity Tolerance Progress Towards Goals Progressing Toward Goals Assessment Summary Shelby continues to make progress with her mobility. She is SBA for STS's and for ambulation with FWW. Educated pt on intensity and frequency of post-op ther-ex. PT is recommending home with assist. Goals Bed Mobility Goal Independent Transfer Goal Independent,Front Wheeled Walker Gait Goal Independent,Front Wheel Walker Gait Distance 150 Days to Meet Goals 3 Frequency of Treatment Frequency Of Treatment Twice a Day Treatment Plan Physical Therapy Treatment Plan Bed Mobility Training,Transfer Training,Gait Training, Therapeutic Exercise,Balance Retraining,Post Op Education, Discharge Planning,Hot or Cold Pack,Neuromuscular Re-ed, Coordination Retraining,Manual Therapy Weight Bearing Status Weight Bearing Status Weight Bear as Tolerated Recommendations To Nursing Amount of Assist Needed Standby Assistance Discharge Recommendations PT Discharge Recommendations Home with Assistance, Outpatient PT Transportation Needs at Discharge Private Vehicle
--- NOTE | 2024-05-14 09:56 | PC.NURSE ---
Addendum entered by Sonal Kaur R.N. 05/14/24 10:42: Home instructions given to pt w/ understanding Pt escorted by staff via W/C to waiting vehicle Discharged in stable post op status. Original Note: Pt A/O Med for discomfort w/good relief. JANA Dsg to right knee intact w/ small shadow drainage noted as lower edge, PA in to see; discharge orders received.
== END 2024-05-14 10:35 | disposition home or self-care (01) | DRG 468 ==
LOC: AC 11:21 → OR 05-13 11:24 → AC 05-13 11:24
PROVIDERS: Admitting Provider Orthopaedic Surgery Adult Reconstructive Orthopaedic Surgery; Family Provider Family Medicine; PCP Family Medicine; Referring Provider Family Medicine; Visit Provider Orthopaedic Surgery Adult Reconstructive Orthopaedic Surgery
PROC: 0SPV0JZ Removal of Synthetic Substitute from Right Knee Joint, Tibial Surface, Open Approach (ICD-10-PCS; principal; 2024-05-12 11:45)
DX: T84.032A Mechanical loosening of internal right knee prosthetic joint, initial encounter (principal); I10 Essential (primary) hypertension; G89.18 Other acute postprocedural pain; E03.9 Hypothyroidism, unspecified; E11.9 Type 2 diabetes mellitus without complications; F32.A Depression, unspecified; Z79.85 Long-term (current) use of injectable non-insulin antidiabetic drugs
CPT/HCPCS: 36415; 73560; 85014; 85018; 87070; 87075; 87176; 87205; 93005; 93010; 97116; 97161; 97530; C1776; J0330; J0690; J1170; J1885; J2250; J2405; J2704; J2765; J3010; J3410; J3490